=== PATIENT | female | born 1940 | race Caucasian/White ===

== ENCOUNTER → 2016-12-14 | Outpatient (CLI) | payer BC ==
[~2016-12-14] MED LIST: ASPCH81X PO; DTRSR4 PO; GABA-113 PO; GLC500 PO; IMD/2 PO; MISCCAP80 PO; NXM/40 PO; ONDA8TAB7 PO; RIVA1.5T PO; SIMV-150 PO; TRAM-10 PO
--- NOTE | 2016-12-14 12:41 | MAMMOGRAPHY REPORT ---
UNILATERAL LEFT DIGITAL DIAGNOSTIC MAMMOGRAM TOMOSYNTHESIS WITH CAD AND TARGETED LEFT ULTRASOUND: CLINICAL HISTORY: The patient reports a palpable lump in her left breast for approximately one week. She denies any trauma to the region. TECHNIQUE: Breast tomosynthesis in addition to standard 2D mammography was performed. Current study was also evaluated with a Computer Aided Detection (CAD) system. Left CC and MLO 2-D and tomosynth esis images were obtained. COMPARISON: Comparison is made to exams dated: 02/14/2016 mammogram - [facility] a nd 04/03/2008. BREAST COMPOSITION: There are scattered areas of fibroglandular density in the left breast. FINDINGS: A triangle marker was placed at the site of the palpable lump. At the site of the palpab le lump in the left upper outer quadrant there is an ill-defined focal asymmetry which measures appr oximately 15 mm. The remainder of the left breast is stable compared to prior exams, without suspic ious masses, calcifications, or areas of architectural distortion noted. Targeted ultrasound was performed of the area of the palpable lump pointed out by the patient, in th e left breast at 1:00, approximately 22 cm from the nipple. At the site of the palpable lump there is a superficially located mixed echogenicity ill-defined mass, which is predominantly hyperechoic b ut contains some central hypoechoic portions. The area is ill-defined but measures at least 2.4 x 1 .1 cm. This corresponds with the mammographic focal asymmetry. This has the mammographic and sonog raphic appearance of possible fat necrosis, however, the patient denies any known trauma to this reg ion. Incidentally noted is a morphologically normal left axillary lymph node measuring 9 mm in the left breast at 1:00. IMPRESSION: ACR BI-RADS CATEGORY 4A: LOW SUSPICION FOR MALIGNANCY, TARGETED ULTRASOUND ACR BI-RADS CATEGORY 4A: LOW SUSPICION FOR MALIGNANCY The palpable lump in the left 1:00 breast corresponds with a focal asymmetry mammographically and a mixed echogenicity mass on ultrasound. The imaging findings of the region are suggestive of fat nec rosis, however, the patient denies any known trauma to this region. Recommend follow-up diagnostic mammograms and ultrasound in 6-8 weeks to reevaluate; if the finding has not decreased/resolved at t hat time, ultrasound-guided biopsy could be performed the same day. A phone call was made to the physician's office to confirm faxed results were received. The patient has been verbally notified of the results. She tentatively scheduled the follow-up/biopsy before l eaving the department. Approximately 10% of breast cancers are not detected with mammography. A negative mammographic repor t should not delay biopsy if a clinically suggestive mass is present. Franca Robbins M.D. ah/:12/14/2016 10:22:05 Card Checker: Connor HINTON(Hipolito)(Mandy), [facility] letter sent: Abnormal 4/5 BI-RADS Code: ACR BI-RADS Category 4A: Low Suspicion For Malignancy Ultrasound BI-RADS: ACR BI-RADS Category 4A: Low Suspicion For Malignancy
== END | disposition home or self-care (01) ==
LOC: C.MAMM 08:43
PROVIDERS: ATTEND Internal Medicine Geriatric Medicine
DX: N63 Unspecified lump in breast (principal)

== ENCOUNTER → 2017-01-18 | Outpatient (CLI) | payer BC ==
--- NOTE | 2017-01-18 12:40 | DIAGNOSTIC IMAGING REPORT ---
RIGHT FOREARM 2 VIEWS ROUTINE CLINICAL HISTORY: M79.601 Pain of right upper extremity Right pain. Trauma. COMPARISON: None. DISCUSSION: Deformity mid shaft ulna felt to be secondary to old trauma.] Nondisplaced fracture proximal radial neck. No evidence dislocation. Mild degenerative change of the wrist as well as elbow. Mild soft tissue edema IMPRESSION: 1. Nondisplaced fracture radial neck 2. Deformity mid shaft ulna possibly secondary to old trauma Electronically signed by: Bryan Boyce M.D. 01/18/2017 12:39 PM Dictated Date/Time: 01/18/2017 12:37 PM
--- NOTE | 2017-01-18 12:43 | DIAGNOSTIC IMAGING REPORT ---
RIGHT WRIST MIN 3 VIEWS ROUTINE CLINICAL HISTORY: M79.601 Pain of right upper extremity Right trauma. Pain. COMPARISON: None. DISCUSSION: Generalized degenerative change throughout all major osseous structures. Moderate calcification of the triangular fibrocartilage. Considerable degenerative change first carpometacarpal joint. [No evidence for fracture]. Moderate soft tissue edema. IMPRESSION: 1. Significant degenerative change throughout the wrist. 2. No acute bony abnormality. Electronically signed by: Bryan Boyce M.D. 01/18/2017 12:41 PM Dictated Date/Time: 01/18/2017 12:39 PM
== END | disposition home or self-care (01) ==
LOC: C.RADBC 11:42
PROVIDERS: ATTEND Family Medicine
DX: M79.601 Pain in right arm (principal)

== ENCOUNTER → 2017-04-01 | Outpatient (CLI) | payer BC ==
[2017-04-01 17:24] LABS: ALT/SGPT 25 U/L (12-78); AST/SGOT 16 U/L (15-37); BLOOD UREA NITROGEN 14 mg/dl (7-18); BUN/CREATININE RATIO 24.5 (10-20); CALCIUM 9.4 mg/dl (8.5-10.1); CARBON DIOXIDE 32 mmol/L (21-32); CHLORIDE 105 mmol/L (98-107); CREATININE 0.59 mg/dl (0.60-1.20); GLUCOSE 75 mg/dl (70-99); POTASSIUM 3.9 mmol/L (3.5-5.1); SODIUM 143 mmol/L (136-145)
[2017-04-01 17:27] LABS: ALB/GLOB RATIO 1.1 (0.9-2); ALKALINE PHOSPHATASE 67 U/L (45-117)
[2017-04-01 17:32] LABS: RATIO 21.6 mcg/mg (0-30.0)
[2017-04-02 07:19] LABS: ESTIMATED AVERAGE GLUCOSE 131 mg/dl; HA1C FLAG Normal (Normal)
== END | disposition home or self-care (01) ==
LOC: C.LABBC 15:30
PROVIDERS: ATTEND Family Medicine
DX: I10 Essential (primary) hypertension (principal); E11.8 Type 2 diabetes mellitus with unspecified complications; M81.0 Age-related osteoporosis without current pathological fracture

== ENCOUNTER → 2017-06-10 | Outpatient (CLI) | payer BC ==
--- NOTE | 2017-06-10 14:04 | MAMMOGRAPHY REPORT ---
BILATERAL DIGITAL DIAGNOSTIC MAMMOGRAM TOMOSYNTHESIS WITH CAD: 06/10/2017 CLINICAL HISTORY: Here for short interval follow-up of a palpable left breast lump with an associated mammographic focal asymmetry, with findings felt to represent fat necrosis. The patient no longer f eels the lump. She denies any new complaints. Due for routine mammography of the right breast. TECHNIQUE: Breast tomosynthesis in addition to standard 2D mammography was performed. Current study was also evaluated with a Computer Aided Detection (CAD) system. Bilateral CC and MLO 2-D and tomosy nthesis images were obtained. COMPARISON: Comparison is made to exams dated: 12/14/2016 ultrasound, 12/14/2016 mammogram, 02/14/2016 mammogram - [facility], 04/03/2008, 02/23/2007, and 02/23/2007. BREAST COMPOSITION: There are scattered areas of fibroglandular density in both breasts. FINDINGS: The previously described focal asymmetry in the left upper outer quadrant at the site of t he previously palpable lump is no longer evident and has resolved, and is therefore benign and consis tent with resolved fat necrosis. The remainder of both breasts are stable compared to prior exams, w ithout suspicious masses, calcifications, or areas of architectural distortion noted. Bilateral sarina gn-appearing calcifications are not significantly changed. IMPRESSION: ACR BI-RADS CATEGORY 2: BENIGN The previously seen focal asymmetry at the site of a palpable lump in the left upper outer quadrant h as resolved, and is benign and consistent with resolved fat necrosis. Additionally, the patient no l onger feels the lump. There is no mammographic evidence of malignancy in either breast. A 1 year scr eening mammogram is recommended. The patient has been verbally notified of the results. Approximately 10% of breast cancers are not detected with mammography. A negative mammographic report should not delay biopsy if a clinically suggestive mass is present. Franca Robbins M.D. /:06/10/2017 09:41:56 Global Position System Technician: Tashia HINTON(Hipolito)(Mandy), [facility] letter sent: Normal 1/2 BI-RADS Code: ACR BI-RADS Category 2: Benign
== END | disposition home or self-care (01) ==
LOC: C.MAMM 09:02
PROVIDERS: ATTEND Physician Assistant Medical
DX: N64.9 Disorder of breast, unspecified (principal)

== ENCOUNTER → 2017-06-21 | Outpatient (CLI) | payer BC | END | disposition home or self-care (01) | LOC: C.LABSPEC 17:09 | PROVIDERS: ATTEND Nurse Practitioner Family | DX: R32 Unspecified urinary incontinence (principal) ==

== ENCOUNTER → 2017-12-29 | Outpatient (CLI) | payer BC ==
[2017-12-29 13:11] LABS: BASO % 0.5 %; BASO ABS # 0.04 K/uL (0-0.2); EOS ABS # 0.22 K/uL (0-0.5); HEMATOCRIT 39.1 % (37-47); HEMOGLOBIN 12.8 g/dL (12.0-16.0); IG# 0.01 K/uL (0.00-0.02); LYMPH % 41.8 %; LYMPH ABS # 3.08 K/uL (1.2-3.4); MEAN CELL VOLUME 84.1 fL (80-100); MEAN CORPUSCULAR HEMOGLOBIN 27.5 pg (25-34); MEAN CORPUSCULAR HGB CONC 32.7 g/dl (32-36); MEAN PLATELET VOLUME 11.1 fL (7.4-10.4); MONO % 6.1 %; MONO ABS # 0.45 K/uL (0.11-0.59); NEUT % 48.5 %; NEUT ABS # 3.57 K/uL (1.4-6.5); PLATELET COUNT 251 K/uL (130-400); RED CELL DISTRIBUTION WIDTH CV 14.5 % (11.5-14.5); RED CELL DISTRIBUTION WIDTH SD 44.3 fL (36.4-46.3); WHITE BLOOD COUNT 7.37 K/uL (4.8-10.8)
[2017-12-29 14:11] LABS: ALBUMIN 3.8 gm/dl (3.4-5.0); ALT/SGPT 25 U/L (12-78); AST/SGOT 17 U/L (15-37); BLOOD UREA NITROGEN 18 mg/dl (7-18); CALCIUM 9.2 mg/dl (8.5-10.1); CARBON DIOXIDE 28 mmol/L (21-32); CHOLESTEROL 161 mg/dl (0-200); CREATININE 0.69 mg/dl (0.60-1.20); GLUCOSE 91 mg/dl (70-99); POTASSIUM 3.8 mmol/L (3.5-5.1); SODIUM 140 mmol/L (136-145)
[2017-12-29 14:13] LABS: ALKALINE PHOSPHATASE 60 U/L (45-117); LDL CHOLESTEROL CALCULATED 65 mg/dl; TOTAL PROTEIN 7.7 gm/dl (6.4-8.2)
== END | disposition home or self-care (01) ==
LOC: C.LABBC 11:11
PROVIDERS: ATTEND Nurse Practitioner Adult Health
DX: I10 Essential (primary) hypertension (principal); E11.8 Type 2 diabetes mellitus with unspecified complications; M81.0 Age-related osteoporosis without current pathological fracture; D50.9 Iron deficiency anemia, unspecified

== ENCOUNTER 2022-04-22 07:00 | Inpatient (IN) ==
--- NOTE | 2022-04-14 13:09 | PAT Medication Instructions ---
Medication Instructions Date of Service April 14, 2022 Home Medications Medication Instructions Recorded metoprolol tartrate 25 mg tablet See Rx Instructions PO .COMPLEX 12/30/21 #135 tab metformin 500 mg tablet 500 mg PO BID #180 tab 02/05/22 Continue as directed aspirin 81 mg tablet,delayed release 81 mg PO QAM calcium carbonate 600 mg calcium (1,500 mg) tablet 600 mg PO QAM cholecalciferol (vitamin D3) 25 mcg (1,000 unit) capsule 3,000 units PO QAM cyanocobalamin (vitamin B-12) 1,000 mcg capsule 1,000 mcg PO QPM acetaminophen 500 mg tablet (Tylenol Extra Strength) 500 mg PO Q6H PRN fesoterodine 8 mg tablet,extended release 24 hr 8 mg PO QAM metoprolol tartrate 25 mg tablet See Rx Instructions metformin 500 mg tablet 500 mg PO BID esomeprazole magnesium 40 mg capsule,delayed release 40 mg PO QAM gabapentin 300 mg capsule 300 mg PO QAM PRN lovastatin 20 mg tablet 20 mg PO QAM magnesium oxide 250 mg PO QPM mirabegron 50 mg tablet,extended release 24 hr (Myrbetriq) 50 mg PO QPM ASK your prescriber and surgeon aspirin 81 mg tablet,delayed release 81 mg PO QAM DO NOT take the morning of surgery calcium carbonate 600 mg calcium (1,500 mg) tablet 600 mg PO QAM cholecalciferol (vitamin D3) 25 mcg (1,000 unit) capsule 3,000 units PO QAM metformin 500 mg tablet 500 mg PO BID fesoterodine 8 mg tablet,extended release 24 hr 8 mg PO QAM Take morning of surgery With a small sip of water, OTHERWISE NOTHING TO EAT OR DRINK AFTER MIDNIGHT: acetaminophen 500 mg tablet (Tylenol Extra Strength) 500 mg PO Q6H PRN (if needed) esomeprazole magnesium 40 mg capsule,delayed release 40 mg PO QAM gabapentin 300 mg capsule 300 mg PO QAM PRN (if needed) lovastatin 20 mg tablet 20 mg PO QAM metoprolol tartrate 25 mg tablet See Rx Instructions Take evening before surgery cyanocobalamin (vitamin B-12) 1,000 mcg capsule 1,000 mcg PO QPM acetaminophen 500 mg tablet (Tylenol Extra Strength) 500 mg PO Q6H PRN (if needed) metoprolol tartrate 25 mg tablet See Rx Instructions metformin 500 mg tablet 500 mg PO BID magnesium oxide 250 mg PO QPM mirabegron 50 mg tablet,extended release 24 hr (Myrbetriq) 50 mg PO QPM Other Notes If you have any questions please call us at [phone] or [phone] or [phone] or [phone]
--- NOTE | 2022-04-17 08:25 | Anesthesiology Consultation ---
Date of Service April 17, 2022 Assessment & Plan (1) Encounter for pre-operative examination: - COVID screening: Per assessment on 04/17: No known COVID-19 positive contacts or current COVID-19 related symptoms. Travel screen negative. Patient vaccinated . Surgeon arranging preop COVID testing (scheduled 04/20; [facility]). Awaiting results. Pt requiring admission post-operatively. Plan for recheck with COVID [facility] AM DOS due to possibility that patient may have a roommate. OR aware. [facility]ne order placed. - Check BSG AM DOS - PCP office visit (04/09/22): "Leg cramps are intermittent concern for deep vein thrombosis. Potentially or electrolytes will obtain lab work today.. No signs of localized infection.. Headache/ migraine with history continue treatment as needed and call the office of her.. If worsening symptoms recur would go to the emergency room for CT scan of evaluation" > unremarkable labs done 04/09/22. - ASA instructions: Per patient, continuing perioperatively per surgeon - Cardiology office visit (04/01/22): "She is asymptomatic but does have a limited functional status. It is therefore recommended patient undergo a pharmacologic nuclear stress test for further risk stratification prior to surgery. The stress will be arranged in the near future. Given the murmur auscultated on exam, will also arrange for an echocardiogram. Pending the results of the studies, patient is at an acceptable risk to proceed with surgery." > Echo 04/20/22 was unrem arkable. Stress test done 04/17/22 showed "Moderate, partially-reversible, inferolateral perfusion defect with normal wall motion likely represents artifact. Cannot rule out a small amount of low risk single vessel ischemia/infarct." Provider that saw patient is out of the office and unable to give formal clearance but stress test was reviewed by another provider at the cardiology office MIRZA Shelby 04/21/22 who stated "this was a low risk stress test." Reviewed with Dr. Lua. He feels patient acceptable risk to proceed with surgery as scheduled. Chart Review Chart Review: Acceptable Risk for Surgery (pending evaluation AM DOS) and Patient seen in Pre Admission Testing Teaching & Discussion Pre-Anesthesia Teaching/Discussion Notes: Instructed NPO after midnight before surgery,except medications with 15 cc of water. Medication instructions provided according to the PAT guidelines. History Surgery Operation Date: 04/22/22 10:40 Proposed Procedures p Stenting Thoracic Aorta - Jose Brock MD Height/Weight Height: 4 ft 9 in Weight: 61.235 kg (per verbal) Allergies Allergy/AdvReac Type Severity Reaction Status Date / Time Penicillins Allergy Unknown Hives, Verified 04/14/22 13:55 throat swelling pollen extracts Allergy Unknown Seasonal Verified 04/14/22 13:55 allergies dobutamine Allergy Verified 04/09/22 12:57 sulfamethoxazole Allergy Hives Verified 04/09/22 12:57 [From Bactrim] trimethoprim [From Bactrim] Allergy Hives Verified 04/09/22 12:57 codeine AdvReac Mild N/V Verified 04/09/22 12:57 Medications Home Medications Medication Instructions Recorded Confirmed Last Taken aspirin 81 mg tablet,delayed 81 mg PO QAM tab 05/15/19 04/14/22 Unknown release calcium carbonate 600 mg calcium 600 mg PO QAM tab 05/15/19 04/14/22 Unknown (1,500 mg) tablet cholecalciferol (vitamin D3) 25 3,000 units PO QAM cap 05/15/19 04/14/22 Unknown mcg (1,000 unit) capsule cyanocobalamin (vitamin B-12) 1,000 mcg PO QPM #90 cap 05/15/19 04/14/22 Unknown 1,000 mcg capsule acetaminophen 500 mg tablet 500 mg PO Q6H PRN 10/06/21 04/14/22 Unknown (Tylenol Extra Strength) fesoterodine 8 mg tablet,extended 8 mg PO QAM tab 10/06/21 04/14/22 Unknown release 24 hr metoprolol tartrate 25 mg tablet See Rx Instructions PO .COMPLEX 12/30/21 04/14/22 Unknown #135 tab metformin 500 mg tablet 500 mg PO BID #180 tab 02/05/22 04/14/22 Unknown esomeprazole magnesium 40 mg 40 mg PO QAM 04/14/22 04/14/22 Unknown capsule,delayed release gabapentin 300 mg capsule 300 mg PO QAM PRN 04/14/22 04/14/22 Unknown lovastatin 20 mg tablet 20 mg PO QAM 04/14/22 04/14/22 Unknown magnesium oxide 250 mg PO QPM 04/14/22 04/14/22 Unknown mirabegron 50 mg tablet,extended 50 mg PO QPM 04/14/22 04/14/22 Unknown release 24 hr (Amanda) Past Medical History Medical History Carotid artery stenosis Finger deformity Left middle finger GERD without esophagitis Hypercholesterolemia Hypertension Irritable bowel syndrome Large hiatal hernia Per 03/10/22 Chest CTA Mild coronary artery disease 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 Osteoporosis Phantom limb syndrome 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 Type II diabetes mellitus with complication Urge and stress incontinence Exercise / Class Metabolic Activity III < 4 Walking/Shop/Light housework (Left AKA (uses crutches)) Past Family History Family History Father Emphysema of lung Acute myocardial infarction Hiatal hernia Rheumatoid arthritis Cardiac disorder Myocardial infarction Lung cancer Mother Hypertension Malignant neoplasm of uterus Cardiac disorder Ovarian cancer Unknown Osteoarthritis Diabetes Grandmother Diabetes Aunt Diabetes Uncle Diabetes Grandmother Malignant neoplasm of stomach Denies family history of Prostate cancer Breast cancer Colorectal cancer Stroke Past Surgical History Surgical History History of cataract surgery R/L History of colonoscopy History of D&C History of hand surgery History of hemorrhoidectomy History of tonsillectomy History of tubal ligation 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 Physical Exam Vital Signs VITALS BP 131/59 P 76 TEMP 98.4 SP02 95%RA RESP 16 PHYSICAL Mildly decreased cervical extension range of motion. Full TMJ range of motion. TMD 3 finger breaths Mallampati Score 3 Dentition: several "rotted" teeth felt r/t medication rxn Lungs: clear throughout to auscultation Cardiac: regular rate and rhythm, II/ systolic murmur noted Spine: normal Carotid arteries: negative bruit Extremities: left knee AKA Lab Results Anesthesia Preop Results Results Anesthesia Widget: WBC 7.02 K/uL (4.8-10.8) 04/09/22 Hgb 12.0 g/dL (12.0-16.0) 04/09/22 Hct 36.8 % (37-47) L 04/09/22 Plt 252 K/uL (130-400) 04/09/22 Na 137 mmol/L (136-145) 04/09/22 K 3.7 mmol/L (3.5-5.1) 04/09/22 Cl 103 mmol/L (98-107) 04/09/22 CO2 26 mmol/L (21-32) 04/09/22 BUN 15 mg/dl (6-23) 04/09/22 Creat 0.74 mg/dl (0.6-1.2) 04/09/22 Glucose Level 76 mg/dl (70-99(Fasting)) 04/09/22 PT 10.5 Seconds (9.0-12.0) 04/17/22 PTT 26.5 Seconds (21.0-31.0) 04/17/22 INR 1.0 (0.9-1.1) 04/17/22 HA1c 6.1 % (4.5-5.6) H 03/26/22 Blood Type O Positive 04/17/22 Antibody Screen NEGATIVE 04/17/22 Testing Electrocardiogram Date: 03/10/22 SR at 73bpm. Normal ECG. Chest X-Ray Date: 04/17/22 Findings: + NAD Echocardiogram Date: 04/20/22 EF 60-65%. No regional wall motion abnormalities. Sigmoid septum. AV sclerosis. Borderline pulmonary hypertension. Estimated PASP 35-40 mmHg. Stress Test Date: 04/17/22 Moderate, partially-reversible, inferolateral perfusion defect with normal wall motion likely represents artifact. Cannot rule out a small amount of low risk single vessel ischemia/infarct. Small LV with normal function. LVEF 74% with no regional wall motion abnormalities. Non-diagnostic stress ECG due to inability to reach target HR with Lexiscan. Other Testing CTA Chest (03/10/22) Cardiomegaly without pulmonary emboli identified. Bilateral groundglass opacities are suggestive of probable atelectasis. A mild nonspecific pneumonitis is considered less likely. No pneumothorax or rib fracture identified. Extensive atherosclerosis of the thoracic aorta is most pronounced within the descending thoracic aorta resulting in high-grade stenosis at the level of T9. Large hiatal hernia. Carotid imaging (05/29/11) 50% CHI stenosis, 1-49% LICA stenosis. Antegrade flow in vertebral arteries.
[~2022-04-22 07:00] MED LIST changes: -ASPCH81X PO; +CLINDAMYCIN/D5W 600 MG/54 ML BAG IV SCH; -DTRSR4 PO; -GABA-113 PO; -GLC500 PO; -IMD/2 PO; -MISCCAP80 PO; -NXM/40 PO; -ONDA8TAB7 PO; -RIVA1.5T PO; -SIMV-150 PO; -TRAM-10 PO
--- NOTE | 2022-04-22 07:13 | History & Physical Report ---
Date of Service April 22, 2022 History of Present Illness Primary Care Provider: Farhat Lynch DO Chief Complaint rm#[id number] here for consult for descending aorta stenosis, has had chest pain which initiated workup when stenosis was found History of Present Illness I the pleasure of seeing Katheryn today for evaluation of her aortic stenosis. As you know she is a 81-year-old female who was found to have stenosis of her ascending aorta at the T9 level on a CTA of her chest. 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 She ambulates with crutches. She denies any symptoms of claudication when she ambulates. She denies any rest pain in her foot. She denies any color changes or ulcerations of her foot. She denies any abdominal complaints of postprandial pain. She denies any history or knowledge of renal insufficiency. Review of Systems 10 systems are reviewed. The positive findings were occasional joint swelling chest pain times once which resolved. She has irritable bowel syndrome with occ asional diarrhea and heartburn. She gets frequent bladder infections with slight incontinence. Rest of her review of systems is as the HPI. She denies any abdominal surgery other than the gallbladder. Physical Exam Vitals & Measurements HR: 78 (Monitored) BP: 152/68 SpO2: 96% Input and Output - Last 24 hours (Last 8 hours) No I/O Data Found: On physical exam the patient is awake alert and oriented x3. She is in no apparent distress. Her blood pressure is 140/68 on the left and 152/68 on the right. Radials and carotids are +2 bilaterally. Lungs are clear heart had a regular rhythm. Abdominal exam is benign. No pulsatile masses appreciated. Femorals and pedal's on the right side are +1. The left femorals +1. She has good capillary refill in the right foot. Neurologic exam is grossly intact to motor and sensory function. CT angio was reviewed and this showed at the T9 level severe stenosis of the descending aorta with a large amount of plaque formation. Assessment/Plan 1. Stenosis of thoracic aorta At this point our discussion was whether to leave this alone until it gets worse or she develops symptoms ordered prophylactically due to the location covered with a covered stent and dilated the aorta at that level. We went over the options, risks, and benefits. At this point she would like to go ahead with intervention and try to dilate this area. She understood the risks and options and benefits involved. This will be scheduled in the near future. Thank you very much for letting us participate in the care of this patient. Sincerely, Mary Ann Brock MD Problem List/Past Medical History Ongoing Right shoulder pain Stenosis of thoracic aorta Historical No qualifying data Medications Inpatient No active inpatient medications Home Aspir 81 calcium carbonate esomeprazole, 40 mg, PO, Daily Nelson-Iron, See Instructions lovastatin, 20 mg, PO, Daily metFORMIN, 500 mg, PO, bid metoprolol tartrate, 12.5 mg, PO, bid Myrbetriq 50 mg oral tablet, extended release, 50 mg= 1 tab, PO, Daily Toviaz, 6 mg, PO, Daily Vitamin B-12 Vitamin D3, 3000, PO, Daily Allergies penicillin (hives internal and external) Social History Smoking Status Never smoked cigarettes Signature Line Electronic Signature on File Jose Brock MD Author Signature Dt/Tm: 03/19/2022 11:00 AM It Compliance Analyst [facility] [place], [address] [place] [address] EJS Result Type: .Outpt Ltr Date of Service: March 19, 2022 11:00 EDT Authorization Status: Final Subject: Consult Note Author or Import Date: MD Brock Eugene J on March 19, 2022 11:00 EDT Verified By: MD Brock Eugene J on March 19, 2022 11:00 EDT Encounter info: [id number], [facility], 03/19/2022 - 03/19/2022 Allergies Allergy/AdvReac Type Severity Reaction Status Date / Time Penicillins Allergy Unknown Hives, Verified 04/14/22 13:55 throat swelling pollen extracts Allergy Unknown Seasonal Verified 04/14/22 13:55 allergies dobutamine Allergy Verified 04/09/22 12:57 sulfamethoxazole Allergy Hives Verified 04/09/22 12:57 [From Bactrim] trimethoprim [From Bactrim] Allergy Hives Verified 04/09/22 12:57 codeine AdvReac Mild N/V Verified 04/09/22 12:57 Home Medications Medication Instructions Recorded Confirmed Type aspirin 81 mg tablet,delayed 81 mg PO QAM tab 05/15/19 04/14/22 History release calcium carbonate 600 mg calcium 600 mg PO QAM tab 05/15/19 04/14/22 History (1,500 mg) tablet cholecalciferol (vitamin D3) 25 3,000 units PO QAM cap 05/15/19 04/14/22 History mcg (1,000 unit) capsule cyanocobalamin (vitamin B-12) 1,000 mcg PO QPM #90 cap 05/15/19 04/14/22 History 1,000 mcg capsule acetaminophen 500 mg tablet 500 mg PO Q6H PRN 10/06/21 04/14/22 History (Tylenol Extra Strength) fesoterodine 8 mg tablet,extended 8 mg PO QAM tab 10/06/21 04/14/22 History release 24 hr metoprolol tartrate 25 mg tablet See Rx Instructions PO .COMPLEX 12/30/21 04/14/22 Rx #135 tab metformin 500 mg tablet 500 mg PO BID #180 tab 02/05/22 04/14/22 Rx esomeprazole magnesium 40 mg 40 mg PO QAM 04/14/22 04/14/22 History capsule,delayed release gabapentin 300 mg capsule 300 mg PO QAM PRN 04/14/22 04/14/22 History lovastatin 20 mg tablet 20 mg PO QAM 04/14/22 04/14/22 History magnesium oxide 250 mg PO QPM 04/14/22 04/14/22 History mirabegron 50 mg tablet,extended 50 mg PO QPM 04/14/22 04/14/22 History release 24 hr (Myrbetriq) Past Med/Surg History Medical History Carotid artery stenosis Finger deformity Left middle finger GERD without esophagitis Hypercholesterolemia Hypertension Irritable bowel syndrome Large hiatal hernia Per 03/10/22 Chest CTA Mild coronary artery disease 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 Osteoporosis Phantom limb syndrome 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 Type II diabetes mellitus with complication Urge and stress incontinence Surgical History History of cataract surgery R/L History of colonoscopy History of D&C History of hand surgery History of hemorrhoidectomy History of tonsillectomy History of tubal ligation S/P AKA (above knee amputation) Left leg - R/t traumatic injury age 23 S/P cholecystectomy S/P knee replacement Right Family History Father Emphysema of lung Acute myocardial infarction Hiatal hernia Rheumatoid arthritis Cardiac disorder Myocardial infarction Lung cancer Mother Hypertension Malignant neoplasm of uterus Cardiac disorder Ovarian cancer Unknown Osteoarthritis Diabetes Grandmother Diabetes Aunt Diabetes Uncle Diabetes Grandmother Malignant neoplasm of stomach Denies family history of Prostate cancer Breast cancer Colorectal cancer Stroke Social History (Updated 03/26/22 @ 10:39 by Mona Berger) Smoking Status: Never smoker Second Hand Exposure: No; Hx Alcohol Use: No Hx Substance Use: No Preferred Language: Citizen Of [place] Communication Ability: Effective Visual Impairment: Limited Hearing Ability: Use of Hearing Aid Gaming Host Required: No Beliefs That Will Affect Care: None marital status: / Current Living Situation: Alone Current Living Situation Comment: Family to help post op current occupational status: disabled How many Children do You have: 2 Feels Safe at Home: Yes Childhood Exposure to Second-Hand Smoke: No caffeine: No Dental Care, Regularly: Yes Physical Activity Frequency: Does not Exercise Seatbelt Use: always Sunscreen Use: No Assistive Devices: Crutches, Hearing Aid - Right and Walker
[2022-04-22] MEDS: LACTATED RINGER'S 1,000 ML IV SCH ×3 (09:00→16:53)
[2022-04-22] MEDS ORDERED: ATROPINE SULFATE 0.1 MG/ML 10ML SYR IV PRN (10:53)
[2022-04-22] MEDS ORDERED: fentaNYL citrate 100 MCG/2 ML VIAL IV PRN (10:53)
[2022-04-22] MEDS ORDERED: ONDANSETRON INJ 2 MG/ML 2 ML VIAL IV PRN (10:53)
[2022-04-22] MEDS ORDERED: fentaNYL citrate 100 MCG/2 ML VIAL ONE ×2 (11:42→13:51)
--- NOTE | 2022-04-22 11:43 | History & Physical Bridge Note ---
Date of Service April 22, 2022 History & Physical Bridge Note I have examined the patient, reviewed the History & Physical and in the interval since the performance of the History & Physical I have noted the following changes of clinical significance: no changes noted
[2022-04-22] MEDS ORDERED: GELATIN SPONGE SZ 100 ONE (11:46)
[2022-04-22] MEDS ORDERED: THROMBIN FOR SOLN 20000 UNIT KIT ONE (11:46)
[2022-04-22] MEDS ORDERED: ONDANSETRON INJ 2 MG/ML 2 ML VIAL ONE (13:40)
[2022-04-22] MEDS ORDERED: PROPOFOL IV EMULSION 10 MG/ML 20 ML VIAL IV ONE (13:40)
[2022-04-22] MEDS ORDERED: HEPARIN SOD (PORCINE) 1000 UNIT/ML ONE (13:40)
[2022-04-22] MEDS ORDERED: LIDOCAINE 2% 2 ML VIAL/AMP(20MG/ML) INFIL ONE (13:40)
[2022-04-22] MEDS ORDERED: PHENYLEPHRINE HCL 10 MG/ML VIAL ONE (13:40)
[2022-04-22] MEDS ORDERED: ROCURONIUM BROMIDE 10 MG/ML 5 ML VIAL IV ONE (13:40)
[2022-04-22] MEDS ORDERED: ePHEDrine sulfate 50 MG/ML SYR ONE (13:58)
--- NOTE | 2022-04-22 14:22 | Procedure Note ---
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 She ambulates with crutches. She denies any symptoms of claudication when she ambulates. She denies any rest pain in her foot. She denies any color changes or ulcerations of her foot. She denies any abdominal complaints of postprandial pain. She denies any history or knowledge of renal insufficiency. She presents today for aortoiliac angiography with possible intervention. Description of Procedure The patient was taken to the angiography suite. She was transferred to the operating room table and placed in the supine position. The bilateral groins were prepped and draped in the usual sterile fashion. A team timeout was performed. Under ultrasound guidance the right common femoral artery was accessed with a 19G cook needle. This was pulsatile and there was some posterior wall calcification. A J wire was advanced. The needle was removed. A small andrew was made in the skin around the wire. A 5F short sheath was placed over the wire. An angled glidewire was advanced through the sheath on the right side and into the infrarenal aorta. A pigtail catheter was advanced over the wire and the wire was removed. Angiography of the distal aorta and bilateral iliac systems was performed. There were scattered calcifications along the distal aorta however there were no flow-limiting stenoses. The proximal right common iliac artery had an approximately 70% flow-limiting stenosis which was focal. The right external and hypogastric arteries were patent and with scattered calcifications however no flow-limiting stenoses. On the left, the common iliac artery was occluded. The external iliac artery appeared to fill retrograde from collaterals, which then perfused some of the common iliac artery. The left hypogastric artery was not definitively visualized however there were multiple collaterals in this vicinity, one of which could actually have represented a diminutive hypogastric artery. Under ultrasound guidance the left common femoral artery was accessed with a 19G cook needle. This was weakly pulsatile and there was some posterior wall calcification. A J wire was advanced. The needle was removed. A small andrew was made in the skin around the wire. A 5F short sheath was placed over the wire. The patient was heparinized. A floppy angled glidewire was advanced over the wire through the left side. This buckled back initially suggesting an obstructive lesion however with minimal maneuvering we were able to cross into the aorta and our wire actually went into the contralateral (right) common iliac artery. We then placed and angled glide catheter and used this to direct the wire up into the aorta. Then, a 5x40mm armada balloon was inflated along the length of the left common iliac and the proximal external iliac artery. Repeat angiography showed that there was flow through this system however it was still stenotic and the flow was not as brisk as on the contralateral side. On the left side, the floppy wire was exchanged for a stiff angled glide wire. The 5F sheath was removed and exchanged for a short 8F sheath. On the right side, the 5F sheath was removed and two perclose devices were deployed, in the 10 o'clock and 2 o'clock positions. Then, an 8F sheath was placed. On the left side, an 8x59 VBX stent was advanced so that there was about 1cm of its proximal end into the aorta. On the right side, an 8x39 VBX stent was advanced so that there was about 1 cm of its proximal end into the aorta. The balloons were inflated simultaneously in a kissing fashion. Then, on the right side a 9x40mm armada balloon was inflated inside the stent for improved wall apposition in this larger artery. Repeat angiography demonstrated excellent flow through the right iliac artery stent and no further areas of flow-limiting stenosis in the right iliac system. On the left, the stent was patent however distal to the stent and extending to the femoral artery the vessels were still heavily diseased and the flow became a bit sluggish. Given that she has a left above knee amputation, we chose not to further intervene on this side. Next, a pigtail catheter was advanced up the left side into the mid descending thoracic aorta. Angiography was performed and showed a calcific lesion about the T9 level. While the calcific plaque was certainly impressive in size the flow across the lesion was brisk. We checked arterial catheter pressures across the lesion and above the lesion the pressure was 97mmHg. Within the lesion the pressure was 95mmHg. Just distal to the lesion the pressure was 93mmHg. Thus we did not intervene on this lesion. The proglide devices were deployed in the right groin with good take. Manual pressure was held. Hemostasis was obtained. A starclose closure device was deployed in the left groin with good take. Manual pressure was held. Hemostasis was obtained. Clean dry dressings were placed over the bilateral groin access sites. The patient tolerated the procedure well and without immediate complication. At the conclusion of the case all needle, sponge, and instrument counts were correct. The patient was taken to the recovery room in satisfactory condition. Dr. Borck remained present and scrubbed for the entirety of the procedure. I attest to the content of the Intraoperative Record and any orders documented therein. Any exceptions are noted below.
[2022-04-22] MEDS ORDERED: VISIPAQUE IV PRN (14:25)
--- NOTE | 2022-04-22 14:38 | Post Operative Brief Note ---
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
[2022-04-22] MEDS ORDERED: GABAPENTIN 300 MG CAP PO PRN (15:54)
[2022-04-22] MEDS ORDERED: oxyCODONE/ACETAMINOPHEN 5mg/325mg TAB PO PRN (15:54)
--- NOTE | 2022-04-22 15:58 | Anesthesiology Progress Note ---
Date of Service April 22, 2022 Anesthesia Post Procedure Vital Signs Vital Signs: Temp Pulse Pulse Resp BP BP BP 04/22/22 15:40 80 17 136/58 L 04/22/22 15:35 78 18 85/63 L 04/22/22 15:30 77 16 118/56 L 04/22/22 15:28 78 16 04/22/22 08:52 36.5 C 86 20 121/64 135/58 L Pulse Ox 04/22/22 15:40 99 04/22/22 15:35 99 04/22/22 15:30 100 04/22/22 15:28 100 04/22/22 08:52 94 Transfer of Care Handoff Completed per policy Notes Mental Status: alert / awake / arousable Patient Amnestic to Procedure: Yes Nausea / Vomiting: adequately controlled Pain: adequately controlled Airway Patency, RR, SpO2: stable & adequate BP & HR: stable & adequate Hydration State: stable & adequate Anesthetic Complications: no major complications apparent
[2022-04-22] MEDS ORDERED: ONDANSETRON INJ 2 MG/ML 2 ML VIAL IV ONE (16:04)
[2022-04-22] MEDS ORDERED: HYDROmorphone INJ 0.5 MG/0.5 ML SYR IV STA (16:06)
--- NOTE | 2022-04-22 16:06 | Critical Care Consultation ---
Date of Consultation April 22, 2022 Assessment & Plan (1) Stenosis of thoracic aorta: (2) Iliac artery stenosis, bilateral: (3) Presence of cerebrospinal fluid drainage device: Will defer pain control and hemodynamic parameters to the vascular surgery team. Patient having lumbar pain. Dr. Brock feels this pain may be related to stretching of the arteries. Pain may also be related to the CSF drain. We will check a PTT and if this is within normal limits, anesthesia will pull the drain. I personally discussed the case with the on-call anesthesiologist and the vascular surgeon. Low threshold for imaging of the abdomen/pelvis and spine to evaluate for hematoma or ischemic changes. We will check a post op CBC. Case discussed with bedside nursing as well. History of Present Illness Reason for Consultation: "Spinal drain in place" Attending Physician: Jose Brock MD History of Present Illness 81-year-old female with a past medical history of coronary artery disease, hypertension, carotid artery stenosis, left lower extremity [id number] amputation due to traumatic injury at the age of 23, GERD, IBS, type 2 diabetes mellitus and peripheral vascular disease who presented to the hospital today for stenting of her aorta and iliac arteries. Preoperative echo performed 04/20/2022 revealed an LVEF of 60 to 65%. Aortic valve sclerosis noted. Preop myocardial stress test demonstrated partially reversible, inferolateral perfusion defect with normal wall motion likely representing artifact. LVEF 74%. Nondiagnostic stress EKG. chest CTA 03/10/2022 revealed thoracic aorta stenosis at the level of T9. Bilateral groundglass opacities suggestive of atelectasis. Large hiatal hernia. Patient underwent stenting of the right iliac artery which was successful based on the op note. Left iliac artery was also stented, but flow was sluggish and no further intervention was pursued given the patient's history of amputation. Angiography was performed of the aorta, but ultimately no stenting was completed due to adequate flow based on the op note. Patient is currently in the ICU and remains hemodynamically stable. Patient notes severe lower back pain. Patient has a CSF drain in place that was placed prior to the vascular procedure to monitor CSF pressures given the possibility of spinal ischemia in the setting of aortic artery stenosis and stenting. I discussed the pain with the vascular surgeon and anesthesia staff. I placed an order for a PTT, if the PTT is normal, anesthesia will pull the drain. The patient also had a bout of emesis upon arrival to the ICU and received IV Zofran. She is complaining of more nausea and I placed an order for 12.5 mg of IV Phenergan. Allergies Allergy/AdvReac Type Severity Reaction Status Date / Time Penicillins Allergy Unknown Hives, Verified 04/22/22 08:46 throat swelling pollen extracts Allergy Unknown Seasonal Verified 04/22/22 08:46 allergies dobutamine Allergy Verified 04/22/22 08:46 sulfamethoxazole Allergy Hives Verified 04/22/22 08:46 [From Bactrim] trimethoprim [From Bactrim] Allergy Hives Verified 04/22/22 08:46 codeine AdvReac Mild N/V Verified 04/22/22 08:46 Home Medications Medication Instructions Recorded Confirmed Type aspirin 81 mg tablet,delayed 81 mg PO QAM tab 05/15/19 04/22/22 History release calcium carbonate 600 mg calcium 600 mg PO QAM tab 05/15/19 04/22/22 History (1,500 mg) tablet cholecalciferol (vitamin D3) 25 3,000 units PO QAM cap 05/15/19 04/22/22 History mcg (1,000 unit) capsule cyanocobalamin (vitamin B-12) 1,000 mcg PO QPM #90 cap 05/15/19 04/22/22 History 1,000 mcg capsule acetaminophen 500 mg tablet 500 mg PO Q6H PRN 10/06/21 04/22/22 History (Tylenol Extra Strength) fesoterodine 8 mg tablet,extended 8 mg PO QAM tab 10/06/21 04/22/22 History release 24 hr metoprolol tartrate 25 mg tablet See Rx Instructions PO .COMPLEX 12/30/21 04/22/22 Rx #135 tab metformin 500 mg tablet 500 mg PO BID #180 tab 02/05/22 04/22/22 Rx esomeprazole magnesium 40 mg 40 mg PO QAM 04/14/22 04/22/22 History capsule,delayed release gabapentin 300 mg capsule 300 mg PO QAM PRN 04/14/22 04/22/22 History lovastatin 20 mg tablet 20 mg PO QAM 04/14/22 04/22/22 History magnesium oxide 250 mg PO QPM 04/14/22 04/22/22 History mirabegron 50 mg tablet,extended 50 mg PO QPM 04/14/22 04/22/22 History release 24 hr (Amanda) Patient History Medical History (Updated 04/22/22 @ 16:53 by Terrell Lisa MD) Carotid artery stenosis Finger deformity Left middle finger GERD without esophagitis Hypercholesterolemia Hypertension Iliac artery stenosis, bilateral Irritable bowel syndrome Large hiatal hernia Per 03/10/22 Chest CTA Mild coronary artery disease 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 Osteoporosis Phantom limb syndrome Presence of cerebrospinal fluid drainage device 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 Type II diabetes mellitus with complication Urge and stress incontinence Surgical History History of cataract surgery R/L History of colonoscopy History of D&C History of hand surgery History of hemorrhoidectomy History of tonsillectomy History of tubal ligation S/P AKA (above knee amputation) Left leg - R/t traumatic injury age 23 S/P cholecystectomy S/P knee replacement Right Family History Father Emphysema of lung Acute myocardial infarction Hiatal hernia Rheumatoid arthritis Cardiac disorder Myocardial infarction Lung cancer Mother Hypertension Malignant neoplasm of uterus Cardiac disorder Ovarian cancer Unknown Osteoarthritis Diabetes Grandmother Diabetes Aunt Diabetes Uncle Diabetes Grandmother Malignant neoplasm of stomach Denies family history of Prostate cancer Breast cancer Colorectal cancer Stroke Social History Smoking Status: Never smoker Second Hand Exposure: No; Do You Dip or Chew Tobacco: No; Tobacco Cessation Education Requested by Patient: No Hx Alcohol Use: No Hx Substance Use: No Preferred Language: Slovenian Communication Ability: Effective Visual Impairment: Limited Hearing Ability: Use of Hearing Aid Division Field Inspector Required: No Beliefs That Will Affect Care: None marital status: / Current Living Situation: Alone Current Living Situation Comment: Family to help post op current occupational status: disabled How many Children do You have: 2 Other Information That Helps Us Care for You: No Feels Safe at Home: Yes Safety Concerns: Feels Safe At This Time Childhood Exposure to Second-Hand Smoke: No caffeine: No Dental Care, Regularly: Yes Physical Activity Frequency: Does not Exercise Seatbelt Use: always Sunscreen Use: No Assistive Devices: Crutches, Hearing Aid - Right and Walker Review of Systems Review of Systems: All systems reviewed & are unremarkable except as noted in HPI & below Physical Exam Physical Exam: Constitutional: Patient appears to be of their stated age. Patient is in moderate distress. Eyes: Pupils are equal round and reactive to light. Conjunctivae are normal. Anicteric sclera. Ears nose, mouth and throat: Mallampati class []. Normal posterior oropharynx. Uvula is midline. Neck: Trachea is midline. Visual inspection is normal. Respiratory: Clear to auscultation bilaterally. No use of accessory muscles. No significant clubbing noted. Cardiovascular: Regular rate and rhythm. Distal right lower extremity pulses intact. Left AKA noted. Gastrointestinal: Normal bowel sounds, soft, nontender and nondistended. No hepatosplenomegaly noted. Musculoskeletal: No cyanosis. Patient is able to move all extremities. Skin: No rashes, warm dry and intact. Neurologic: No obvious focal neurological deficits seen. CSF drain noted in the lumbar space. Psychiatric: Alert and oriented x3 with a euthymic affect. Results & Data Results & Data ([facility]) Vital Signs (Past 12 Hours) Vital Signs Temp Pulse Pulse Resp BP BP BP 04/22/22 15:40 80 17 136/58 L 04/22/22 15:35 78 18 85/63 L 04/22/22 15:30 77 16 118/56 L 04/22/22 15:28 78 16 04/22/22 08:52 36.5 C 86 20 121/64 135/58 L Pulse Ox 04/22/22 15:40 99 04/22/22 15:35 99 04/22/22 15:30 100 04/22/22 15:28 100 04/22/22 08:52 94 Coding Level of Care Code 72264 Inpt Consult Level 4 Diagnoses Stenosis of thoracic aorta Q25.1 Iliac artery stenosis, bilateral I77.1 Presence of cerebrospinal fluid drainage device Z98.2
[2022-04-22] MEDS ORDERED: PROMETHAZINE HCL 12.5 MG in SODIUM CHLORIDE 0.9% 50 ML IV STA (16:46)
[2022-04-22 18:00] LABS: Partial Thromboplastin Ratio 0.9; Partial Thromboplastin Time 24.4 Seconds (21.0-31.0)
[2022-04-22 18:02] LABS: Basophils # (auto) 0.03 K/uL (0-0.2); Basophils % (auto) 0.3 %; Eosinophils # (auto) 0.04 K/uL (0-0.5); Eosinophils % (auto) 0.4 %; Hematocrit (blood only) 26.9 % (37-47); Hemoglobin 8.8 g/dL (12.0-16.0); Immature Granulocytes # (auto) 0.02 K/uL (0.00-0.02); Immature Granulocytes % (auto) 0.2 %; Lymphocytes % (auto) 17.8 %; Mean Corpuscular Hemoglobin 27.4 pg (25-34); Mean Corpuscular Volume 83.8 fL (80-100); Mean Platelet Volume 10.9 fL (7.4-10.4); Monocytes # (auto) 0.41 K/uL (0.11-0.59); Monocytes % (auto) 3.8 %; Neutrophils # (auto) 8.25 K/uL (1.4-6.5); Neutrophils % (auto) 77.5 %; Platelet Count 189 K/uL (130-400); RDW Coefficient of Variation 13.8 % (11.5-14.5); RDW Standard Deviation 42.1 fL (36.4-46.3); Red Blood Count 3.21 M/uL (4.2-5.4); White Blood Count 10.65 K/uL (4.8-10.8)
[2022-04-22 18:04] LABS: Mean Corpuscular Hgb Conc 32.7 g/dL (32-36)
--- NOTE | 2022-04-22 18:32 | Anesthesia Procedure Note ---
Date of Service April 22, 2022 Anesthesia Post Epidural Note Vital Signs Vital Signs: Temp Pulse Resp BP Pulse Ox 36.5 C 76 14 161/67 H 99 04/22/22 08:52 04/22/22 18:00 04/22/22 18:00 04/22/22 18:00 04/22/22 18:00 Pain Intensity Lower Back: Pain Intensity: 1 Notes Mental Status: alert / awake / arousable and participated in evaluation Nausea / Vomiting: adequately controlled Pain: adequately controlled Airway Patency, RR, SpO2: stable & adequate BP & HR: stable & adequate Hydration State: stable & adequate Neuraxial Anesthesia: was administered and sensory block is resolving Anesthetic Complications: no major complications apparent and Pt Satisfied with anesthetic care Epidural: Removed without complications and With tip intact Notes: The patient's ANANDA is 24.4 with PTT ratio of 0.9. The drain site was clear dry and intact.
[2022-04-22] MEDS: CYANOCOBALAMIN (B-12) 500 MCG TABLET PO SCH (20:53)
[2022-04-22] MEDS: MIRABEGRON ER 25 MG TAB PO SCH (20:54)
[2022-04-22] MEDS: metFORMIN HCL 500 MG TAB PO SCH (20:54)
[2022-04-22] MEDS: MAGNESIUM OXIDE 400 MG TAB PO SCH (20:54)
[2022-04-22] MEDS: METOPROLOL TARTRATE 25 MG TAB PO SCH (20:54)
[2022-04-23] MEDS: LACTATED RINGER'S 1,000 ML IV SCH (03:04)
[2022-04-23 07:19] LABS: Basophils # (auto) 0.01 K/uL (0-0.2); Basophils % (auto) 0.1 %; Eosinophils # (auto) 0.01 K/uL (0-0.5); Eosinophils % (auto) 0.1 %; Hematocrit (blood only) 21.7 % (37-47); Hemoglobin 7.1 g/dL (12.0-16.0); Immature Granulocytes # (auto) 0.01 K/uL (0.00-0.02); Immature Granulocytes % (auto) 0.1 %; Lymphocytes # (auto) 2.28 K/uL (1.2-3.4); Lymphocytes % (auto) 24.5 %; Mean Corpuscular Hemoglobin 26.6 pg (25-34); Mean Corpuscular Hgb Conc 32.7 g/dL (32-36); Mean Corpuscular Volume 81.3 fL (80-100); Mean Platelet Volume 10.5 fL (7.4-10.4); Monocytes # (auto) 0.66 K/uL (0.11-0.59); Monocytes % (auto) 7.1 %; Neutrophils # (auto) 6.33 K/uL (1.4-6.5); Neutrophils % (auto) 68.1 %; Platelet Count 159 K/uL (130-400); RDW Coefficient of Variation 14.2 % (11.5-14.5); Red Blood Count 2.67 M/uL (4.2-5.4)
[2022-04-23 07:42] LABS: RBC Morphology Unremarkable
[2022-04-23] MEDS ORDERED: SODIUM CHLORIDE 0.9% 250 ML IV PRN (08:38)
--- NOTE | 2022-04-23 08:56 | Critical Care Progress Note ---
Date of Service April 23, 2022 Assessment & Plan (1) Stenosis of thoracic aorta: (2) Iliac artery stenosis, bilateral: (3) Presence of cerebrospinal fluid drainage device: (4) Postoperative anemia: (5) Volume overload: Plan: Will defer pain control and hemodynamic parameters to the vascular surgery team. Postoperative hemoglobin trending downwards. Dr. Brock made aware this morning by RN. He placed orders for a CTA of her abdomen and pelvis. 2 units of blood ordered as well. Suspect an element of hemodilution as well. Patient hypoxemic with crackles. Recommend discontinuing IV fluids and giving the patient a dose of diuretic. Will defer to the vascular surgery team. Case discussed with bedside nursing as well. Admission and Anticipated Discharge Date Admission Date: April 22, 2022 Subjective Patient seen and examined this morning. She appears much more comfortable and denies any pain at this time. She has had some brief episodes of hypoxemia requiring supplemental oxygen. Review of Systems Review of Systems: All systems reviewed & are unremarkable except as noted in HPI & below Physical Exam Physical Exam: Constitutional: Patient appears to be of their stated age. Patient comfortable. Eyes: Pupils are equal round and reactive to light. Conjunctivae are normal. Anicteric sclera. Ears nose, mouth and throat: No signs of trauma Neck: Trachea is midline. Visual inspection is normal. Respiratory: Crackles bilaterally. No significant increased work of breathing. Cardiovascular: Regular rate and rhythm. Distal right lower extremity pulses intact. Left AKA noted. Gastrointestinal: Normal bowel sounds, soft, nontender and nondistended. No hepatosplenomegaly noted. Musculoskeletal: No cyanosis. Patient is able to move all extremities. Skin: No rashes, warm dry and intact. Neurologic: No obvious focal neurological deficits seen. Psychiatric: Alert and oriented x3 with a euthymic affect. Results & Data Results & Data ([facility]) Vital Signs (Past 12 Hours) Vital Signs Temp Pulse Resp BP Pulse Ox 04/23/22 07:45 94 04/23/22 07:40 87 L 04/23/22 07:34 36.9 C 04/23/22 07:00 78 12 124/42 L 95 04/23/22 06:00 83 15 107/46 L 95 04/23/22 05:00 82 13 124/48 L 96 04/23/22 04:00 82 16 117/47 L 95 04/23/22 03:00 83 15 121/49 L 96 04/23/22 02:00 80 17 96/40 L 96 04/23/22 01:00 84 10 L 106/52 L 96 04/23/22 00:00 84 12 95/43 L 96 04/22/22 23:00 86 19 101/42 L 97 04/22/22 22:00 36.7 C 85 19 93/45 L 96 04/22/22 21:00 102 H 20 130/82 97 Coding Level of Care Code 38951 Subseq Hosp Care Lvl 2 Diagnoses Stenosis of thoracic aorta Q25.1 Iliac artery stenosis, bilateral I77.1 Presence of cerebrospinal fluid drainage device Z98.2 Postoperative anemia D64.9 Volume overload E87.70
[2022-04-23] MEDS ORDERED: OPTIRAY 320 125ml IV ONE (09:32)
[2022-04-23] MEDS: ASPIRIN 81 MG ECTAB PO SCH ×2 (10:30→13:19)
[2022-04-23] MEDS: CALCIUM CARBONATE 1250MG TAB PO SCH (10:30)
--- NOTE | 2022-04-23 10:30 | CT Scan Report ---
CT ANGIOGRAPHY OF THE ABDOMEN AND PELVIS CLINICAL HISTORY: RO bleed, SP TEVAR COMPARISON STUDY: Renal ultrasound September 04, 2019. TECHNIQUE: Helical axial images of the abdomen and pelvis were obtained during arterial phase followi ng intravenous injection of 119 cc Optiray 320 IV. Sagittal and coronal reconstructions were viewed a s well as maximal intensity projections on an independent 3-D workstation. Automated exposure control was utilized for the study. A dose lowering technique was utilized adhering to the principles of [place]. FINDINGS: Cardiomegaly is noted. A moderate sized hiatal hernia with partially intrathoracic stomach is noted. No pneumatosis, free air or portal venous gas is present. Mild dilatation of the common jose e duct is likely related to cholecystectomy. This exam is mildly compromised by motion artifact. Panc reatic glandular atrophy is noted. No pancreatic ductal dilatation is identified. There is no evidenc e for a bowel obstruction. There is mild wall thickening of the descending colon with mild pericoloni c stranding. Colonic diverticulosis is noted. There is no evidence for diverticulitis. Multiple suspe cted splenic infarcts are noted. These involve approximately 60% of the spleen. There is trace perisp lenic fluid. Mild left hydronephrosis is noted. Excreted contrast within the left collecting system a nd proximal ureter is noted. The left hydronephrosis may be due to mass effect upon the left ureter b y left retroperitoneal hematoma. Overall, there is moderate acute left retroperitoneal hemorrhage. Sm all amount of acute right retroperitoneal hemorrhage is noted, adjacent to the psoas muscle. This is predominantly within the left perinephric and anterior pararenal space. This extends into the pelvis. Source for the hemorrhage is not clear on this exam. No active extravasation is identified. Hallman ba lloon, gas and contrast within the bladder present. There is mild stenosis at the origin of the celiac axis. Extensive plaque within the abdominal aorta is noted. Superior mesenteric artery is patent. Inferior mesenteric artery is patent. Bilateral renal arteries are patent. There is focal outpouching/dilatation of the distal abdominal aorta, measuring 1.8 cm in caliber. Bilateral common iliac artery stents are patent. The right common iliac, internal iliac and external iliac arteries are patent. The right common femoral and visualized portions of the right superficial femoral arteries are patent. There is mild stranding within both groins. No fluid collection is identified. Left common iliac stent is patent. There is short segment dissection within the left external iliac a rtery. There is moderate stenosis of the left common femoral artery. Note is made of occlusion of the proximal left superficial femoral artery. Left profunda is patent. IMPRESSION: 1. Moderate left retroperitoneal acute hemorrhage. Small amount of acute right retroperitoneal hemorr shayan. Source for the hemorrhage not clear on this exam. No active extravasation. 2. Multiple splenic infarcts. 3. Mild wall thickening of the descending colon with pericolonic stranding. This represents a nonspec ific colitis. Ischemic etiology is within the differential. 4. Patent bilateral common iliac artery stents. Short segment dissection within the left external yevgeniy ac artery. Age indeterminate occlusion of the proximal left superficial femoral artery. 5. Mild left hydronephrosis. This may be due to mass effect upon the proximal left ureter by the retr operitoneal hematoma. ACT 112: Negative or not required by law. Electronically signed by: Rad Jessica M.D. 04/23/2022 10:28 AM
[2022-04-23] MEDS: PANTOprazole 40 MG TAB PO SCH (10:31)
[2022-04-23] MEDS: LOVASTATIN 20 MG TAB PO SCH (10:31)
[2022-04-23] MEDS: CHOLECALCIFEROL 1,000 UNITS 25 MCG TAB PO SCH (10:31)
[2022-04-23] MEDS: METOPROLOL TARTRATE 25 MG TAB PO SCH ×2 (10:33→20:23)
[2022-04-23] MEDS: metFORMIN HCL 500 MG TAB PO SCH (12:03)
--- NOTE | 2022-04-23 14:27 | Surgery Progress Note ---
Date of Service April 23, 2022 Assessment & Plan (1) Iliac artery stenosis, bilateral: Plan: Pt overall doing ok after BL ilaic stenting yesterday. Spinal drainage has been removed. Post op anemia, but has remained stable. Will continue to monitor. Discussed with Dr Brock, will transfer to floor. Admission and Anticipated Discharge Date Admission Date: April 22, 2022 Subjective 81 yo f POD #1 after BL iliac stenting by Dr Brock, seen in f/u today. Pt overall with c/o fatigue and mild L groin discomfort. No other complaints. Hgb 7.1 today, transfused 1 U PRBC. VSS. Review of Systems Review of Systems: All systems reviewed & are unremarkable except as noted in HPI & below Physical Exam Constitutional: WD/WN, vitals as above comfortable Cardiovascular: Rate/Rhythm: regular rate and regular rhythm Vessels: femoral pulses present, posterior tibial pulses present, dorsalis pedis pulses present and radial pulses present; + abnormal peripheral pulses Gastrointestinal (Abdomen): Inspection/Auscultation: normal bowel sounds Percussion/Palpation: + abdomen tender (L groin area, mild local ecchymosis) and abdomen soft Musculoskeletal: no cyanosis or clubbing, extremities motor strength 5/5 Neurologic: moves all extremities and awake; no focal motor deficits and not confused Psychiatric: A+Ox3, euthymic affect Results & Data ([facility]) Vital Signs (Past 12 Hours) Vital Signs Temp Pulse Resp BP Pulse Ox 04/23/22 13:21 36.7 C 84 15 148/53 H 94 04/23/22 12:21 36.7 C 77 17 153/57 H 95 04/23/22 11:21 37 C 92 H 17 136/56 L 94 04/23/22 10:51 37.6 C H 99 H 19 155/60 H 96 04/23/22 10:36 37.5 C 100 H 19 137/48 L 93 04/23/22 10:18 36.9 C 84 14 157/48 H 93 04/23/22 07:45 94 04/23/22 07:40 87 L 04/23/22 07:34 36.9 C 04/23/22 07:00 78 12 124/42 L 95 04/23/22 06:00 83 15 107/46 L 95 04/23/22 05:00 82 13 124/48 L 96 04/23/22 04:00 82 16 117/47 L 95 04/23/22 03:00 83 15 121/49 L 96
[2022-04-23 18:57] LABS: Hematocrit (blood only) 33.3 % (37-47); Hemoglobin 11.2 g/dL (12.0-16.0)
[2022-04-23] MEDS: ACETAMINOPHEN 500 MG TAB PO PRN (20:21)
[2022-04-23] MEDS: MAGNESIUM OXIDE 400 MG TAB PO SCH (20:23)
[2022-04-23] MEDS: MIRABEGRON ER 25 MG TAB PO SCH (20:23)
[2022-04-23] MEDS: CYANOCOBALAMIN (B-12) 500 MCG TABLET PO SCH (20:23)
[2022-04-24] MEDS: ACETAMINOPHEN 500 MG TAB PO PRN ×2 (02:53→10:16)
[2022-04-24] MEDS: LOVASTATIN 20 MG TAB PO SCH (08:16)
[2022-04-24] MEDS: PANTOprazole 40 MG TAB PO SCH (08:16)
[2022-04-24] MEDS: METOPROLOL TARTRATE 25 MG TAB PO SCH (08:17)
[2022-04-24] MEDS: CHOLECALCIFEROL 1,000 UNITS 25 MCG TAB PO SCH (08:17)
[2022-04-24] MEDS: CALCIUM CARBONATE 1250MG TAB PO SCH (08:17)
[2022-04-24] MEDS: ASPIRIN 81 MG ECTAB PO SCH (08:17)
--- NOTE | 2022-04-27 10:50 | Discharge Summary ---
Date of Service April 27, 2022 Admission HPI Per Admitting Provider Chief Complaint rm#5 here for consult for descending aorta stenosis, has had chest pain which initiated workup when stenosis was found History of Present Illness I the pleasure of seeing Katheryn today for evaluation of her aortic stenosis. As you know she is a 81-year-old female who was found to have stenosis of her ascending aorta at the T9 level on a CTA of her chest. 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 She ambulates with crutches. She denies any symptoms of claudication when she ambulates. She denies any rest pain in her foot. She denies any color changes or ulcerations of her foot. She denies any abdominal complaints of postprandial pain. She denies any history or knowledge of renal insufficiency. Review of Systems 10 systems are reviewed. The positive findings were occasional joint swelling chest pain times once which resolved. She has irritable bowel syndrome with occasional diarrhea and heartburn. She gets frequent bladder infections with slight incontinence. Rest of her review of systems is as the HPI. She denies any abdominal surgery other than the gallbladder. Physical Exam Vitals & Measurements HR: 78 (Monitored) BP: 152/68 SpO2: 96% Input and Output - Last 24 hours (Last 8 hours) No I/O Data Found: On physical exam the patient is awake alert and oriented x3. She is in no apparent distress. Her blood pressure is 140/68 on the left and 152/68 on the right. Radials and carotids are +2 bilaterally. Lungs are clear heart had a regular rhythm. Abdominal exam is benign. No pulsatile masses appreciated. Femorals and pedal's on the right side are +1. The left femorals +1. She has good capillary refill in the right foot. Neurologic exam is grossly intact to motor and sensory function. CT angio was reviewed and this showed at the T9 level severe stenosis of the descending aorta with a large amount of plaque formation. Assessment/Plan 1. Stenosis of thoracic aorta At this point our discussion was whether to leave this alone until it gets worse or she develops symptoms ordered prophylactically due to the location covered with a covered stent and dilated the aorta at that level. We went over the options, risks, and benefits. At this point she would like to go ahead with intervention and try to dilate this area. She understood the risks and options and benefits involved. This will be scheduled in the near future. Thank you very much for letting us participate in the care of this patient. Sincerely, Mary Ann Brock MD Problem List/Past Medical History Ongoing Right shoulder pain Stenosis of thoracic aorta Historical No qualifying data Medications Inpatient No active inpatient medications Home Aspir 81 calcium carbonate esomeprazole, 40 mg, PO, Daily Nelson-Iron, See Instructions lovastatin, 20 mg, PO, Daily metFORMIN, 500 mg, PO, bid metoprolol tartrate, 12.5 mg, PO, bid Myrbetriq 50 mg oral tablet, extended release, 50 mg= 1 tab, PO, Daily Toviaz, 6 mg, PO, Daily Vitamin B-12 Vitamin D3, 3000, PO, Daily Allergies penicillin (hives internal and external) Social History Smoking Status Never smoked cigarettes Signature Line Electronic Signature on File Jose Brock MD Author Signature Dt/Tm: 03/19/2022 11:00 AM Passenger Service Representative Greg Breen [facility] [address], [address] [place] [address] EJS Result Type: .Outpt Ltr Date of Service: March 19, 2022 11:00 EDT Authorization Status: Final Subject: Consult Note Author or Import Date: MD Brock Eugene J on March 19, 2022 11:00 EDT Verified By: MD Brock Eugene J on March 19, 2022 11:00 EDT Encounter info: [id number], [facility], Clinic, 03/19/2022 - 03/19/2022 Admission Exam Per Admitting Provider On physical exam the patient is awake alert and oriented x3. She is in no apparent distress. Her blood pressure is 140/68 on the left and 152/68 on the right. Radials and carotids are +2 bilaterally. Lungs are clear heart had a regular rhythm. Abdominal exam is benign. No pulsatile masses appreciated. Femorals and pedal's on the right side are +1. The left femorals +1. She has good capillary refill in the right foot. Neurologic exam is grossly intact to motor and sensory function. CT angio was reviewed and this showed at the T9 level severe stenosis of the descending aorta with a large amount of plaque formation. Principal Diagnosis 1. s/p BL iliac artery stenting 2. Postop anemia 3. Aortoiliac occlusive disease Discharge Exam Constitutional WD/WN, vitals as above comfortable Cardiovascular Rate/Rhythm: regular rate and regular rhythm Vessels: femoral pulses present, posterior tibial pulses present, dorsalis pedis pulses present and radial pulses present; + abnormal peripheral pulses Gastrointestinal (Abdomen) Inspection/Auscultation: normal bowel sounds Percussion/Palpation: + abdomen tender (L groin area, mild local ecchymosis) and abdomen soft Musculoskeletal no cyanosis or clubbing, extremities motor strength 5/5 Neurologic moves all extremities and awake; no focal motor deficits and not confused Psychiatric A+Ox3, euthymic affect Discharge Data Allergies Allergy/AdvReac Type Severity Reaction Status Date / Time Penicillins Allergy Unknown Hives, Verified 04/22/22 08:46 throat swelling pollen extracts Allergy Unknown Seasonal Verified 04/22/22 08:46 allergies dobutamine Allergy Verified 04/22/22 08:46 sulfamethoxazole Allergy Hives Verified 04/22/22 08:46 [From Bactrim] trimethoprim [From Bactrim] Allergy Hives Verified 04/22/22 08:46 codeine AdvReac Mild N/V Verified 04/22/22 08:46 Consultations 04/22/22 15:54 Consult Sampling Expert Routine Procedures Performed Operation Date: 04/22/22 10:40 Actual Procedures p Aortogram, Bilateral Iliac Artery Stenting, Bilateral Femoral Artery Mechanical Closure (Bilateral) - Jose Brock MD Ordered Studies 04/22/22 EV iliac balloon stent Routine 04/22/22 10:26 US EV guide vascular access Routine 04/23/22 08:31 CTA abdomen pelvis w con [CT angio abdomen pelvis w con] Stat Hospital Course (1) Iliac artery stenosis, bilateral: Pt overall doing ok on POD #2 after BL ilaic stenting. Spinal drainage has been removed. Post op anemia, but VS have remained stable, hgb improved after 2 u PRBC. D/c home. Total Time Total Time Spent Total Time Spent (In Minutes): 0 Discharge Plan Discharge Items Patient Disposition: Home - Self-Care Reason For Visit: Stenosis Descending Thoracic Aorta Discharge Diagnosis: Right iliac artery stenosis, left iliac artery occlusion Activity: Resume your previous activity Lifting: Gradually increase as tolerated Bathing: No limitations Exercise/Sports: Gradually increase as tolerated Non-emergency contact: Surgeon Call non-emergency contact if: your temperature is above 101.5, your wound has increased redness, your wound has increased drainage and your wound pain has increased Follow-up/Referrals: Farhat Lynch DO [Primary Care Provider] - Diet: Heart Healthy Addtl Attending Provider Instructions: ACTIVITY RECOMMENDATIONS: See Above SPECIAL CARE INSTRUCTIONS: Call your doctor if: * Temperature above 101 degrees * Pain not relieved by pain medicine ordered * There is increased drainage or redness from any incision * You have any unanswered questions or concerns. Call [phone] to schedule a follow up appointment if one not already scheduled. Pending Studies at Discharge: No Stand-Alone Forms: My [facility] [employer], Smoking Cessation Medications and DC Order Prescriptions: New oxycodone-acetaminophen [Percocet] 5-325 mg tablet 1 tab PO Q8H PRN (Reason: pain) Qty: 20 RF: 0 Continued metformin 500 mg tablet 500 mg PO BID Qty: 180 RF: 3 fesoterodine 8 mg tablet extended release 24 hr 8 mg PO QAM RF: 0 acetaminophen [Tylenol Extra Strength] 500 mg tablet 500 mg PO Q6H PRN (Reason: Pain) RF: 0 metoprolol tartrate 25 mg tablet See Rx Instructions PO .COMPLEX Qty: 135 RF: 3 aspirin 81 mg tablet,delayed release (DR/EC) 81 mg PO QAM RF: 0 cyanocobalamin (vitamin B-12) 1,000 mcg capsule 1,000 mcg PO QPM Qty: 90 RF: 0 calcium carbonate 600 mg calcium (1,500 mg) tablet 600 mg PO QAM RF: 0 cholecalciferol (vitamin D3) 1,000 unit capsule 3,000 units PO QAM RF: 0 esomeprazole magnesium 40 mg capsule,delayed release(DR/EC) 40 mg PO QAM RF: 0 gabapentin 300 mg capsule 300 mg PO QAM PRN (Reason: pain) RF: 0 lovastatin 20 mg tablet 20 mg PO QAM RF: 0 magnesium oxide 250 mg magnesium tablet 250 mg PO QPM RF: 0 Myrbetriq 50 mg tablet extended release 24 hr 50 mg PO QPM RF: 0 Discharge Orders: Discharge Order (Routine); Ordered 04/24/22 Ordered By: Jose Brock Admission Data Admit Date/Time: 04/22/22 07:13 Attending Provider: Jose Brock Admit Provider: Jose Brock Primary Care Provider: Farhat Lynch Other Providers: Mario Schmidt ; Farhat Cortez ; Bogdan Brink ; Terrell Lisa ; Colton Milan ; Gabino Potter ; Rafal Chamberlain ; Alejo Dougherty ; Awa España Other Interventions: Discharge Summary Assessment (RN) Last Done: 04/24/22 11:27
--- NOTE | 2022-04-28 06:14 | Coding Query ---
ANEMIA To promote full compliance with coding requirements relating to patient care, physician participation is requested in all cases of inpatient coder uncertainty. Please assist us with the question(s) below: Coding Question(s): The record reflects the following clinical findings: * Postop HGB 7.1, pt transfused one UPC. If these findings are indicative of anemia, please specify the known or suspected type by placing an "X" within the parenthesis (x). If other, please document type. Examples are: (x ) Acute blood loss anemia ( ) Acute Postoperative blood loss anemia ( ) Acute postoperative anemia due to dilutional fluids ( ) Chronic blood loss anemia ( ) Anemia of chronic disease ( ) Aplastic anemia ( ) Anemia due to renal disease ( ) Anemia in neoplastic disease ( ) Iron deficient anemia ( ) Anemia, unspecified or other ( ) Other: (please specify) ( ) Unable to determine Thank you CARROL Curry [facility]
--- NOTE | 2022-04-28 06:20 | Coding Query ---
CODING QUERY To promote full compliance with coding requirements relating to patient care, provider participation is requested in all cases of motorcycle sales associate uncertainty. Please assist us with the question(s) below: Coding Question(s): 04/23 Critical care note documented left and right small acute retroperitoneal hemorrhage. Seeking to clarify if this is expected postopertive or a complication of the procedure. Pt was tranfused postop with hgb of 7.1. Please check below. Thank you . Miguel Angel Herbert [facility] Physician's Response(s): The retroperitoneal hemorrhage is expected postop x__ The retroperitoneal hemorrhage is a complication of the procedure Cannot clinically correlate if the retroperitoneal hemorrhage is a complication of the procedure Other: Please document: Principal Diagnosis: "that condition established after study, to be chiefly responsible for occasioning the admission of the patient to the hospital for care." Co-Existing Principal Diagnosis: "when two or more diagnoses equally meet the criteria for principal diagnosis as determined by the circumstances of admission, diagnostic work up, and/or therapy provided, and the Alphabetic Index, Tabular List, or another coding guideline does not provide sequencing direction, any one of the diagnoses may be sequenced first." "When the physician has documented what appears to be a current diagnosis in the body of the record, but has not included the diagnosis in the final diagnostic statement, the physician should be asked whether the diagnosis should be added." (Source Coding Clinic 2 QTR90. p3-4) MARY ANN
== END 2022-04-24 14:43 | disposition home or self-care (01) | DRG 253 ==
LOC: ASU 08:21 → 1E 08:22
PROC: M.TEVAR (2022-04-22 10:40)

== ENCOUNTER 2024-09-02 18:34 | Observation (INO) ==
[2024-09-02 19:08] LABS: Basophils # (auto) 0.05 K/uL (0.00-0.20); Eosinophils # (auto) 0.18 K/uL (0.00-0.50); Eosinophils % (auto) 3.5 %; Hematocrit (blood only) 33.1 % (37.0-47.0); Hemoglobin 10.5 g/dl (12.0-16.0); Immature Granulocytes # (auto) 0.01 K/uL (0.01-0.20); Immature Granulocytes % (auto) 0.2 %; Lymphocytes # (auto) 2.04 K/uL (1.20-3.40); Lymphocytes % (auto) 39.2 %; Mean Corpuscular Hemoglobin 26.9 pg (25.0-34.0); Mean Corpuscular Hgb Conc 31.7 g/dL (32.0-36.0); Mean Corpuscular Volume 84.9 fL (80.0-100.0); Mean Platelet Volume 11.8 fL (9.4-12.4); Monocytes # (auto) 0.51 K/uL (0.11-0.59); Monocytes % (auto) 9.8 %; Neutrophils # (auto) 2.42 K/uL (1.40-6.50); Neutrophils % (auto) 46.3 %; Platelet Count 233 K/uL (130-400); RDW Coefficient of Variation 13.7 % (11.5-14.5); RDW Standard Deviation 42.3 fL (36.4-46.3); White Blood Count 5.21 K/ul (4.8-10.8)
[2024-09-02 19:16] LABS: Albumin Globulin Ratio 1.1 (0.9-2); BUN Creatinine Ratio 17.8 (10-20); Bilirubin,Total 0.2 mg/dl (0.2-1.0); Calcium 9.2 mg/dl (8.6-10.3); Creatinine Clr Calc Pharmacy 33.7 ml/min; Globulin 3.5 gm/dl (2.5-4.0); Potassium 3.2 mmol/L (3.5-5.1); Total Protein 7.5 gm/dl (6.0-8.3)
[2024-09-02 19:23] LABS: Troponin I High Sensitivity 4.3 pg/ml (0-14)
--- NOTE | 2024-09-02 19:24 | Emergency Department Note ---
Impression & Plan Chest pain, Increased nausea and vomiting ED Provider Note NAME: REGLA ROUSSEAU AGE: 83 SEX: F : 1940 ARRIVES VIA: Ambulance INFORMANT: Patient, ED PROVIDER(S): Phu Mercer MD CHIEF COMPLAINT: Chest pain HPI: This is a 83-year-old female presenting for chest pain. Patient notes that she has had no previous cardiac history. She does have history of type 2 diabetes. She reports chest pain for the past 2 days. This is not exertional or pleuritic. No associated shortness of breath. She notes a pressure-like sensation in the bottom of her sternum. She does note some slight nausea. She notes some slight indigestion sensation. There was no fevers, chills, or vomiting. ROS: See above HPI for pertinent positives & negatives. A total of 10 systems reviewed and were otherwise negative. PAST MEDICAL HISTORY: See Below PAST SURGICAL HISTORY: See Below FAMILY HISTORY: See Below SOCIAL HISTORY: See Below HOME MEDICATIONS: See Below ALLERGIES: See Below VITALS: See Below PHYSICAL EXAMINATION: General: resting comfortably in no acute distress Head: Normocephalic and atraumatic Eyes: Normal inspection, extraocular muscles intact Ear, nose, throat: Normal external exam Neck: Normal range of motion Respiratory: lungs clear to auscultation bilaterally Cardiovascular: Regular rate/rhythm, no murmur GI: soft, nontender, no guarding or rebound Extremities: Left BKA, right lower extremity normal, upper extremities show no obvious abnormality, normal pulses Neuro: The patient awake and alert, appropriately conversive, no focal deficits, symmetric faces Skin: Warm, dry, and intact MEDICAL DECISION MAKING: This an 83-year-old female presenting for chest pain. Will do screening EKG, blood work, chest x-ray. Low concern for PE as she has no pleuritic symptoms. Her pulse is slight elevated around 99. No hypoxia. -Bloodwork is reviewed with slightly low potassium. Otherwise no significant elevated troponin. Patient's is anemic at 10.5. -At this time patient given potassium her patient vomited this back up. -Chest Xray independently interpreted by me showing no pneumothorax, focal opacity, or pleural effusions. -Patient continues to note chest pain as well as indigestion sensation. -Patient never had any cardiac workup including stress test. Cardiac catheterization. -After discussion with family, discussed option including admission versus discharge. Patient would prefer admission at this time for further cardiac rule out. -Dr. Mayer consulted for admission. Differential diagnosis: ACS, PE, pressure infection, pneumonia ER treatment provided: See below Independent History obtained from: Son, Diagnostics interpreted by me: ECG: ECG independently interpreted by me with normal sinus rhythm, rate of 83, normal axis, normal IL, normal QRS, normal QTc, no ST segment elevations consistent with STEMI criteria Cardiac Monitoring: An order was placed for continuous cardiac monitoring. The monitor shows a rate of 84 with sinus rhythm. Laboratory studies: As stated above and show below. Imaging studies: See below. Past Med/Surg History Problem List (Updated 09/04/24 @ 00:35 by Phu Mercer MD) Increased nausea and vomiting (Acute) Chest pain (Acute) Anemia Chest pain Mild cognitive impairment Hypertension (Acute) Mild coronary artery disease (Chronic) Non-obstructive CAD (2010) Carotid artery stenosis (Chronic) Aortoiliac stenosis Follow[facility] by [facility] Vascular, b/l iliac artery stent 05/2022 Stenosis of thoracic aorta Type II diabetes mellitus with complication (Chronic) Hypercholesterolemia (Acute) Urge and stress incontinence (Chronic) Osteoporosis (Acute) Irritable bowel syndrome (Acute) GERD without esophagitis (Chronic) Phantom limb syndrome Gait instability Medical History (Updated 09/04/24 @ 00:35 by Phu Mercer MD) Primary osteoarthritis of right knee Volume overload Postoperative anemia Presence of cerebrospinal fluid drainage device Large hiatal hernia Per 03/10/22 Chest CTA 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 Hypomagnesemia Suspected to be 2/2 PPI - Started on Mg Oxide 250mg/day Recurrent UTI (urinary tract infection) Mixed conductive and sensorineural hearing loss of both ears Finger deformity Left middle finger Surgical History History of tubal ligation History of tonsillectomy History of hemorrhoidectomy History of hand surgery History of D&C History of colonoscopy History of cataract surgery R/L S/P cholecystectomy S/P knee replacement Right S/P AKA (above knee amputation) Left leg - R/t traumatic injury age 23 Family History Father Emphysema of lung Acute myocardial infarction Hiatal hernia Rheumatoid arthritis Cardiac disorder Myocardial infarction Lung cancer Mother Hypertension Malignant neoplasm of uterus Cardiac disorder Ovarian cancer Unknown Osteoarthritis Diabetes Grandmother Diabetes Aunt Diabetes Uncle Diabetes Grandmother Malignant neoplasm of stomach Denies family history of Prostate cancer Breast cancer Colorectal cancer Stroke Social History Smoking Status: Never smoker Second Hand Exposure: No; Do You Dip or Chew Tobacco: No; Hx Alcohol Use: No Hx Substance Use: No Preferred Language: Serbian Communication Ability: Effective Visual Impairment: Limited Hearing Ability: Use of Hearing Aid Staff Assistant Required: No Beliefs That Will Affect Care: None marital status: / Current Living Situation: Alone Current Living Situation Comment: Family to help post op current occupational status: disabled How many Children do You have: 2 Feels Safe at Home: Yes Childhood Exposure to Second-Hand Smoke: No Diet: regular caffeine: No during the past year weight has: remained stable Dental Care, Regularly: Yes Physical Activity Frequency: Does not Exercise Seatbelt Use: always Sunscreen Use: No Assistive Devices: Crutches, Hearing Aid - Right and Wheelchair Allergies Allergies Allergy/AdvReac Type Severity Reaction Status Date / Time Penicillins Allergy Unknown Hives, Verified 06/29/24 08:28 throat swelling pollen extracts Allergy Unknown Seasonal Verified 06/29/24 08:28 allergies dobutamine Allergy Unknown Verified 06/29/24 08:28 sulfamethoxazole Allergy Hives Verified 06/29/24 08:28 [From Bactrim] trimethoprim [From Bactrim] Allergy Hives Verified 06/29/24 08:28 codeine AdvReac Mild N/V Verified 06/29/24 08:28 Home Meds Home Medications Medication Instructions Recorded Confirmed aspirin 81 mg tablet,delayed 81 mg PO QAM 05/15/19 09/03/24 release calcium carbonate 600 mg PO QAM 05/15/19 09/03/24 cholecalciferol (vitamin D3) 25 3,000 units PO QAM 05/15/19 09/03/24 mcg (1,000 unit) capsule cyanocobalamin (vitamin B-12) 1,000 mcg PO QPM #90 caps 05/15/19 09/03/24 1,000 mcg capsule gabapentin 300 mg capsule 300 mg PO QAM PRN pain 04/14/22 09/03/24 magnesium oxide 250 mg PO BID 07/31/22 09/03/24 metoprolol tartrate 25 mg tablet 25 mg PO QPM 12/07/23 09/03/24 fesoterodine 4 mg tablet,extended 4 mg PO DAILY 06/29/24 09/03/24 release 24 hr ferrous sulfate 325 mg (65 mg 325 mg PO DAILY 09/03/24 09/03/24 iron) tablet Previous Rx's Medication Instructions Recorded blood sugar diagnostic (EasyMax #50 ea 08/31/22 strips) lancets (Accu-Chek Softclix #100 ea 08/31/22 Lancets) esomeprazole magnesium 40 mg 40 mg PO DAILY #90 caps 11/05/23 capsule,delayed release metoprolol tartrate 25 mg tablet 12.5 mg (1/2 x 25 mg) PO QAM 90 11/18/23 days #45 tabs lovastatin 20 mg tablet 20 mg PO QAM #90 tabs 02/29/24 Results & Data (ED) Vital Signs Vital Signs - 24 hr 09/02/24 18:41 09/02/24 18:41 09/02/24 18:41 Temperature 36.9 C Temperature Source Oral Pulse Rate 98 H Pulse Rate [Apical] 98 H Respiratory Rate 18 16 Respiratory Effort / Characteristics Respiratory Depth Respiratory Pattern Blood Pressure 150/78 H Blood Pressure [Right Radial Artery] 150/78 H Blood Pressure Mean 102 Blood Pressure Mean [Right Radial Artery] 102 Pulse Oximetry 95 95 95 Oxygen Delivery Method Room Air Room Air Room Air Sepsis Recent Fever Within 48 Hours No Sepsis New/Unexplained Change in Mental Status N/A Sepsis Action Taken by Nursing No Action Required 09/02/24 18:41 09/02/24 18:43 09/02/24 19:00 Temperature Temperature Source Pulse Rate 95 H 98 H Pulse Rate [Apical] 99 H Respiratory Rate 16 16 Respiratory Effort / Characteristics Non-Labored Respiratory Depth Normal Respiratory Pattern Regular Blood Pressure Blood Pressure [Right Radial Artery] 135/84 Blood Pressure Mean Blood Pressure Mean [Right Radial Artery] 101 Pulse Oximetry 95 96 Oxygen Delivery Method Room Air Room Air Sepsis Recent Fever Within 48 Hours Sepsis New/Unexplained Change in Mental Status Sepsis Action Taken by Nursing 09/02/24 20:30 Temperature Temperature Source Pulse Rate Pulse Rate [Apical] 86 Respiratory Rate 14 Respiratory Effort / Characteristics Non-Labored Respiratory Depth Normal Respiratory Pattern Regular Blood Pressure Blood Pressure [Right Radial Artery] 158/67 H Blood Pressure Mean Blood Pressure Mean [Right Radial Artery] 97 Pulse Oximetry Oxygen Delivery Method Sepsis Recent Fever Within 48 Hours Sepsis New/Unexplained Change in Mental Status Sepsis Action Taken by Nursing Laboratory Data 09/03/24 04:51 09/03/24 04:51 Lab Results 09/02/24 09/02/24 Range/Units 18:50 21:19 WBC 5.21 (4.8-10.8) K/ul RBC 3.90 L (4.20-5.40) M/uL Hgb 10.5 L (12.0-16.0) g/dl Hct 33.1 L (37.0-47.0) % MCV 84.9 (80.0-100.0) fL MCH 26.9 (25.0-34.0) pg MCHC 31.7 L (32.0-36.0) g/dL RDW Std Deviation 42.3 (36.4-46.3) fL RDW Coeff of Ann Marie 13.7 (11.5-14.5) % Plt Count 233 (130-400) K/uL MPV 11.8 (9.4-12.4) fL Immature Gran % (Auto) 0.2 % Neut % (Auto) 46.3 % Lymph % (Auto) 39.2 % [place] % (Auto) 9.8 % Eos % (Auto) 3.5 % Baso % (Auto) 1.0 % Neut # (Auto) 2.42 (1.40-6.50) K/uL Lymph # (Auto) 2.04 (1.20-3.40) K/uL [place] # (Auto) 0.51 (0.11-0.59) K/uL Eos # (Auto) 0.18 (0.00-0.50) K/uL Baso # (Auto) 0.05 (0.00-0.20) K/uL Immature Gran # (Auto) 0.01 (0.01-0.20) K/uL Sodium 144 (136-145) mmol/L Potassium 3.2 L (3.5-5.1) mmol/L Chloride 104 (98-107) mmol/L Carbon Dioxide 31 (21-32) mmol/L Anion Gap 9 (3-11) BUN 18 (6-23) mg/dl Creatinine 1.01 (0.6-1.2) mg/dl Est Cr Clr Drug Dosing 33.7 ml/min eGFR 55.93 BUN/Creatinine Ratio 17.8 (10-20) Glucose 148 H (70-99(Fasting)) mg/dl Calcium 9.2 (8.6-10.3) mg/dl Magnesium 1.8 (1.7-2.4) mg/dl Total Bilirubin 0.2 (0.2-1.0) mg/dl AST 23 (13-39) U/L ALT 16 (7-52) U/L Alkaline Phosphatase 67 (34-104) U/L Troponin I High Sens 4.3 5.5 (0-14) pg/ml Total Protein 7.5 (6.0-8.3) gm/dl Albumin 4.0 (3.4-5.0) gm/dl Globulin 3.5 (2.5-4.0) gm/dl Albumin/Globulin Ratio 1.1 (0.9-2) Lipase 15 (11-82) U/L Administered Medications Discontinued Medications Pantoprazole Sodium (Protonix) 40 mg in 10 mls @ 5 mls/min IV NOW ONE Stop: 09/02/24 22:31 Last Admin: 09/02/24 22:40 Dose: 5 mls/min Documented By: JOHN Lactated Ringer's (Lr) 1,000 mls @ 80 mls/hr IV .[id number] JONG Stop: 09/03/24 22:59 Last Infusion: 09/03/24 07:52 Dose: Infused Documented By: Admin: 09/02/24 23:51 Dose: 80 mls/hr Documented By: BILLIE Pantoprazole Sodium (Protonix) 40 mg in 10 mls @ 5 mls/min IV BID JONG Stop: 10/03/24 08:59 Last Admin: 09/03/24 08:27 Dose: 5 mls/min Documented By: MARITZA Metoprolol Tartrate (Metoprolol Tartrate 25 Mg Tab) 12.5 mg PO QAM JONG Stop: 10/03/24 08:59 Last Admin: 09/03/24 08:27 Dose: 12.5 mg Documented By: MARITZA Oxybutynin Chloride (Oxybutynin Chloride Xl 5 Mg Tabcr) 5 mg PO DAILY JONG Stop: 10/03/24 08:59 Last Admin: 09/03/24 08:27 Dose: 5 mg Documented By: MARITZA Potassium Chloride (Potassium Chloride Crtab 20 Meq Tabcr) 40 meq PO NOW STA Stop: 09/02/24 19:23 Last Admin: 09/02/24 19:31 Dose: 40 meq Documented By: KMLeonidas Discharge Plan Visit Data Chief Complaint: Cardiac Assessment Stated Complaint: CHEST PAIN X COUPLE DAYS ED Provider: Phu Mercer Discharge Problem: Chest pain, Increased nausea and vomiting Patient Disposition: Admitted As Inpatient Discharge Instructions Interventions: ED Discharge Assessment Last Done: 09/02/24 23:02
[2024-09-02] MEDS: POTASSIUM CHLORIDE CRTAB 20 MEQ TABCR PO STA (19:31)
[2024-09-02 21:25] LABS: Magnesium 1.8 mg/dl (1.7-2.4)
--- NOTE | 2024-09-02 21:26 | History & Physical Report ---
Date of Service September 02, 2024 Assessment & Plan (1) Chest pain: Plan: Pt is a 83 yo female with PMH of thoracic aortic stenosis, HTN, HLD, DM, urinary incontinence, and osteoarthritis presenting to the ER d/t chest pain. Chest pain - per pt, began over the last 2 days intermittently without significant triggering factors - lab work significant for Hgb 10.5, Cr 1.01, trop negative x2 - EKG showing no significant acute ST changes- questionable ST changes noted in lateral leads - although suspicion low for cardiac cause of chest pain, ordered echo to complete cardiac work up; if suspicion remains for cardiac chest pain, would consider stress test - higher suspicion for chest pain secondary to GI causes- uncontrolled GERD vs. PUD; with new anemia and hx of brown vomit, concern for bleeding gastric disease - CTAP ordered for further evaluation; will hemoccult all stools; trend CBC - pantoprazole given on admission; will continue with IV PPI BID - will keep pt NPO for now given concern for bleed Anemia - Hgb 10.5 on admission - unclear etiology; although, suspicious for GI bleed- plan as above Hypokalemia - 3.2 on admission - s/p 40 meq in ER - repeat with AM labs DM - last A1c 03/2024 6.5% - no home medications HTN - continue home metoprolol 12.5mg qAM, 25mg qPM Diet: NPO, IVF at 80 mL/hr VTE ppx: hold in setting of suspected GI bleed Code: full; if pt unable to make her own decisions, her daughter Filomena is her decision maker Dispo: admit to PCU/tele (2) Type II diabetes mellitus with complication: (3) Hypertension: (4) Hypercholesterolemia: (5) GERD without esophagitis: (6) Anemia: History of Present Illness Chief Complaint: chest pain Primary Care Provider: Farhat Lynch DO Pt is a 83 yo female with PMH of thoracic aortic stenosis, HTN, HLD, DM, urinary incontinence, and osteoarthritis presenting to the ER d/t chest pain. Pt notes she has had central chest pain that began over the past 2 days. Her symptoms are intermittent and without obvious triggers. She has a hx of a leg amputation and therefore is unsure if her symptoms are worsened by exertion as she has a hard time getting around. She also notes that her stomach has been upset with this chest pain causing her to vomit. Her vomit has been brown in color. She denies any other associated symptoms like lightheaded or dizziness. She notes feeling "fuzzy." She also feels increased acid and pain in her throat. The vomiting helps to relieve some of her chest discomfort. Pt notes she has had reflux issues in the past and does take medication for this at home. She had an EGD done many years ago. She denies dark stools or BRBPR. She also denies cardiac hx. In the ER, pt was given 40 meq K. Allergies Allergy/AdvReac Type Severity Reaction Status Date / Time Penicillins Allergy Unknown Hives, Verified 06/29/24 08:28 throat swelling pollen extracts Allergy Unknown Seasonal Verified 06/29/24 08:28 allergies dobutamine Allergy Unknown Verified 06/29/24 08:28 sulfamethoxazole Allergy Hives Verified 06/29/24 08:28 [From Bactrim] trimethoprim [From Bactrim] Allergy Hives Verified 06/29/24 08:28 codeine AdvReac Mild N/V Verified 06/29/24 08:28 Home Medications Medication Instructions Recorded Confirmed Type aspirin 81 mg tablet,delayed 81 mg PO QAM 05/15/19 09/03/24 History release calcium carbonate 600 mg PO QAM 05/15/19 09/03/24 History cholecalciferol (vitamin D3) 25 3,000 units PO QAM 05/15/19 09/03/24 History mcg (1,000 unit) capsule cyanocobalamin (vitamin B-12) 1,000 mcg PO QPM #90 caps 05/15/19 09/03/24 History 1,000 mcg capsule gabapentin 300 mg capsule 300 mg PO QAM PRN pain 04/14/22 09/03/24 History magnesium oxide 250 mg PO BID 07/31/22 09/03/24 History blood sugar diagnostic (EasyMax #50 ea 08/31/22 08/31/24 Rx strips) lancets (Accu-Chek Softclix #100 ea 08/31/22 08/31/24 Rx Lancets) esomeprazole magnesium 40 mg 40 mg PO DAILY #90 caps 11/05/23 09/03/24 Rx capsule,delayed release metoprolol tartrate 25 mg tablet 12.5 mg (1/2 x 25 mg) PO QAM 90 11/18/23 09/03/24 Rx days #45 tabs metoprolol tartrate 25 mg tablet 25 mg PO QPM 12/07/23 09/03/24 History lovastatin 20 mg tablet 20 mg PO QAM #90 tabs 02/29/24 09/03/24 Rx fesoterodine 4 mg tablet,extended 4 mg PO DAILY 06/29/24 09/03/24 History release 24 hr ferrous sulfate 325 mg (65 mg 325 mg PO DAILY 09/03/24 09/03/24 History iron) tablet Past Med/Surg History Problem List (Updated 09/02/24 @ 21:29 by Charmaine Elkins DO) Anemia Chest pain Mild cognitive impairment Hypertension (Acute) Mild coronary artery disease (Chronic) Non-obstructive CAD (2010) Carotid artery stenosis (Chronic) Aortoiliac stenosis Followed by [facility] Vascular, b/l iliac artery stent 05/2022 Stenosis of thoracic aorta Type II diabetes mellitus with complication (Chronic) Hypercholesterolemia (Acute) Urge and stress incontinence (Chronic) Osteoporosis (Acute) Irritable bowel syndrome (Acute) GERD without esophagitis (Chronic) Phantom limb syndrome Gait instability Medical History (Updated 09/02/24 @ 21:29 by Charmaine Elkins DO) Primary osteoarthritis of right knee Volume overload Postoperative anemia Presence of cerebrospinal fluid drainage device Large hiatal hernia Per 03/10/22 Chest CTA 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 Hypomagnesemia Suspected to be 2/2 PPI - Started on Mg Oxide 250mg/day Recurrent UTI (urinary tract infection) Mixed conductive and sensorineural hearing loss of both ears Finger deformity Left middle finger Surgical History History of tubal ligation History of tonsillectomy History of hemorrhoidectomy History of hand surgery History of D&C History of colonoscopy History of cataract surgery R/L S/P cholecystectomy S/P knee replacement Right S/P AKA (above knee amputation) Left leg - R/t traumatic injury age 23 Family History Father Emphysema of lung Acute myocardial infarction Hiatal hernia Rheumatoid arthritis Cardiac disorder Myocardial infarction Lung cancer Mother Hypertension Malignant neoplasm of uterus Cardiac disorder Ovarian cancer Unknown Osteoarthritis Diabetes Grandmother Diabetes Aunt Diabetes Uncle Diabetes Grandmother Malignant neoplasm of stomach Denies family history of Prostate cancer Breast cancer Colorectal cancer Stroke Social History Smoking Status: Never smoker Second Hand Exposure: No; Do You Dip or Chew Tobacco: No; Hx Alcohol Use: No Hx Substance Use: No Preferred Language: Stateless Communication Ability: Effective Visual Impairment: Limited Hearing Ability: Use of Hearing Aid Associate Partner Required: No Beliefs That Will Affect Care: None marital status: / Current Living Situation: Alone Current Living Situation Comment: Family to help post op current occupational status: disabled How many Children do You have: 2 Feels Safe at Home: Yes Childhood Exposure to Second-Hand Smoke: No Diet: regular caffeine: No during the past year weight has: remained stable Dental Care, Regularly: Yes Physical Activity Frequency: Does not Exercise Seatbelt Use: always Sunscreen Use: No Assistive Devices: Crutches, Hearing Aid - Right and Wheelchair Review of Systems Review of Systems: As per HPI Physical Exam Constitutional: NAD, vitals WNL. Eyes: Conjunctivae normal. Respiratory: CTA bilaterally. Non labored breathing. No rhonchi, wheezing, or crackles. Cardiovascular: RRR. No murmurs noted. No LE edema of right leg. Gastrointestinal (Abdomen): Nontender, +BS. No masses noted. Musculoskeletal: Left leg surgically absent. Skin: No rashes or skin lesions noted. Neurologic: Sensation grossly intact. No FND appreciated. Psychiatric: Speech of normal pace and content. Mood and affect congruent. Results & Data Results & Data Vital Signs (Past 12 Hours) Vital Signs Temp Pulse Pulse Resp BP BP Pulse Ox 09/02/24 20:30 86 14 158/67 H 09/02/24 19:00 99 H 16 135/84 96 09/02/24 18:43 98 H 09/02/24 18:41 95 H 16 95 09/02/24 18:41 98 H 16 150/78 H 95 09/02/24 18:41 95 09/02/24 18:41 36.9 C 98 H 18 150/78 H 95 O2 Del Method 09/02/24 20:30 09/02/24 19:00 Room Air 09/02/24 18:43 11/02/24 18:41 Room Air 09/02/24 18:41 Room Air 09/02/24 18:41 Room Air 09/02/24 18:41 Room Air Supervising Physician Co-Signing Physician Notes Attending addendum: I have physically seen this patient, have supervised the medical residents activities, and agree with the H&P unless as otherwise noted. Assessment and Plan: Chest pain/hypertension/mild CAD- The patient will be admitted to telemetry for serial cardiac enzymes, serial EKG's, cardiac rhythm monitoring and a 2-D echocardiogram with Dopplers. Initial troponin 4.3 follow-up pending Continue aspirin 81 mg daily, mag oxide twice daily, metoprolol to tartrate 12.5 mg p.o. in the a.m. and 25 mg by mouth in the p.m. Anemia/GERD versus PUD- Hemoccult stools Hemoglobin 0.5 on admission Pantoprazole 40 mg IV, with twice daily dosing Will determine in a.m. for aggressive evaluation as needed Hypokalemia- Potassium 3.2 on admission Given Klor-Con 40 mill equivalents p.o. recheck laboratories in the a.m. Diabetes mellitus- Glucose 148 on admission Check hemoglobin A1c, with most recent on 03/24 6.5 Not on home medications Is elevated in the morning, will place on Accu-Cheks with NovoLog coverage Resident Activity Tracking Resident Involvement: Resident Care Provided Care Provided: Adult Hospital Medicine
[2024-09-02] MEDS ORDERED: ONDANSETRON INJ 2 MG/ML 2 ML VIAL IV PRN (22:23)
[2024-09-02] MEDS ORDERED: MELATONIN 3 MG TAB PO PRN (22:23)
[2024-09-02] MEDS ORDERED: POLYETHYLENE (MIRALAX) 17 GM PACK PO PRN (22:23)
[2024-09-02] MEDS ORDERED: ACETAMINOPHEN 325 MG TAB PO PRN (22:23)
[2024-09-02] MEDS: PANTOprazole 40 MG/10 ML SYR IV ONE (22:40)
[2024-09-02] MEDS ORDERED: GABAPENTIN 300 MG CAP PO PRN (23:44)
[2024-09-02] MEDS: LACTATED RINGER'S 1,000 ML IV SCH (23:51)
--- NOTE | 2024-09-03 01:51 | XRay Report ---
Exam(s): XR CXR 1 VIEW EXAM: XR Chest, 1 View CLINICAL HISTORY: Reason for exam: Chest pain, nonspecific. TECHNIQUE: Frontal view of the chest. COMPARISON: August 16, 2023 FINDINGS: Lungs: Unremarkable. No consolidation. Pleural space: Unremarkable. No pneumothorax. Heart: Unremarkable. No cardiomegaly. Mediastinum: Unremarkable. Normal mediastinal contour. Bones/joints: Unremarkable. No acute fracture. IMPRESSION: Normal chest x-ray. Electronically signed by: Steven Ramirez MD 09/03/24 01:50 AM
--- NOTE | 2024-09-03 03:09 | CT Scan Report ---
Exam(s): CT ABDOMEN + PELVIS Without Contrast EXAM: CT Abdomen and Pelvis Without Intravenous Contrast CLINICAL HISTORY: Reason for exam: vomiting, concern for GI bleed. TECHNIQUE: Axial computed tomography images of the abdomen and pelvis without intravenous contrast. CTDI is 26.39 mGy and DLP is 1209.6 mGy-cm. Automated exposure control was utilized for the study. A dose lowering technique was utilized adhering to the principles of ALARA. COMPARISON: August 14, 2022 FINDINGS: Lung bases: Unremarkable. No mass. No consolidation. Mediastinum: Large esophageal hiatal hernia. ABDOMEN: Liver: Unremarkable. Gallbladder and bile ducts: Postoperative changes prior cholecystectomy. No ductal dilation. Pancreas: Unremarkable. No ductal dilation. Spleen: Unremarkable. No splenomegaly. Adrenals: Unremarkable. No mass. Kidneys and ureters: Unremarkable. No obstructing stones. No hydronephrosis. Stomach and bowel: Diverticulosis without evidence of diverticulitis. No obstruction. PELVIS: Appendix: No findings to suggest acute appendicitis. Bladder: Unremarkable. No stones. Reproductive: Unremarkable as visualized. ABDOMEN and PELVIS: Intraperitoneal space: Unremarkable. No free air. No significant fluid collection. Bones/joints: See below. Soft tissues: Unremarkable. Vasculature: dense calcification of the abdominal aorta with postoperative changes kissing iliac stents. No abdominal aortic aneurysm. Lymph nodes: Unremarkable. No enlarged lymph nodes. IMPRESSION: Large esophageal hiatal hernia. The presence or absence of a gastrointestinal hemorrhage cannot be assessed on this unenhanced CT scan. . Electronically signed by: Steven Ramirez MD 09/03/24 03:08 AM
[2024-09-03 05:15] LABS: Hematocrit (blood only) 27.6 % (37.0-47.0); Hemoglobin 8.8 g/dl (12.0-16.0); Mean Corpuscular Hemoglobin 27.1 pg (25.0-34.0); Mean Corpuscular Hgb Conc 31.9 g/dL (32.0-36.0); Mean Corpuscular Volume 84.9 fL (80.0-100.0); Mean Platelet Volume 11.6 fL (9.4-12.4); Platelet Count 206 K/uL (130-400); RDW Coefficient of Variation 13.8 % (11.5-14.5); RDW Standard Deviation 43.1 fL (36.4-46.3); Red Blood Count 3.25 M/uL (4.20-5.40); White Blood Count 5.96 K/ul (4.8-10.8)
[2024-09-03 05:29] LABS: BUN Creatinine Ratio 36.6 (10-20); Calcium 8.4 mg/dl (8.6-10.3); Creatinine Clr Calc Pharmacy 47.9 ml/min
[2024-09-03 07:31] VITALS: RESP 21; TEMP 97.9; O2SAT 94
[2024-09-03] MEDS: PANTOprazole 40 MG/10 ML SYR IV SCH (08:27)
[2024-09-03] MEDS: OXYBUTYNIN CHLORIDE XL 5 MG TABCR PO SCH (08:27)
[2024-09-03] MEDS: METOPROLOL TARTRATE 25 MG TAB PO SCH (08:27)
--- NOTE | 2024-09-03 09:38 | Discharge Summary ---
Discharge Summary Date of Service September 03, 2024 Principal Dx & Hospital Course #1 = Principal Diagnosis (1) Chest pain: Atypical. Troponin series negative. EKGs revealed no acute changes. Cardiac echo report is pending. She is currently asymptomatic (2) Anemia: Chronic. No overt melena or hematochezia. Further outpatient evaluation might be warranted (3) Mild cognitive impairment: Supportive care. (4) Type II diabetes mellitus with complication: ADA diet. Sliding scale coverage as needed. Continue current medical management (5) Hypercholesterolemia: Stable. Continue current medical management Plan Home today, September 03. See PCP as soon as possible for consideration for outpatient stress testing Admission HPI Per Admitting Provider Pt is a 83 yo female with PMH of thoracic aortic stenosis, HTN, HLD, DM, urinary incontinence, and osteoarthritis presenting to the ER d/t chest pain. Pt notes she has had central chest pain that began over the past 2 days. Her symptoms are intermittent and without obvious triggers. She has a hx of a leg amputation and therefore is unsure if her symptoms are worsened by exertion as she has a hard time getting around. She also notes that her stomach has been upset with this chest pain causing her to vomit. Her vomit has been brown in color. She denies any other associated symptoms like lightheaded or dizziness. She notes feeling "fuzzy." She also feels increased acid and pain in her throat. The vomiting helps to relieve some of her chest discomfort. Pt notes she has had reflux issues in the past and does take medication for this at home. She had an EGD done many years ago. She denies dark stools or BRBPR. She also denies cardiac hx. In the ER, pt was given 40 meq K. Discharge Exam General-alert and oriented x3, no fever, no chills HEENT-head atraumatic and normocephalic, pupils equal and reactive to light, extraocular muscles intact Neck-no lymphadenopathy or thyromegaly, trachea midline Chest-clear to auscultation. No rales, wheezing or rhonchi Cardiac-regular rate and rhythm, normal S1 and S2 Abdomen-normal bowel sounds, no hepatosplenomegaly Extremities-no cyanosis, clubbing, or edema Neuro-cranial nerves II through XII intact, motor and sensory function within normal limits, strength symmetrical, no focal deficits Psych-normal affect, normal mood Discharge Plan Discharge Items Patient Disposition: Home - Self-Care Reason For Visit: CHEST PAIN Discharge Diagnosis: Atypical chest pain Activity: Resume your previous activity Non-emergency contact: Primary Care Provider Call non-emergency contact if: your symptoms worsen Follow-up/Referrals: Farhat Lynch, [Primary Care Provider] - Diet: Carb Consistent or DM2 and Heart Healthy Addtl Attending Provider Instructions: All medications remain the same. See primary care provider as soon as possible for consideration of outpatient stress testing Pending Studies at Discharge: Yes Studies:: Cardiac echo report Stand-Alone Forms: My [facility] [employer], Smoking Cessation Medications and DC Order Prescriptions: Continued magnesium oxide 250 mg magnesium tablet 250 mg PO BID (DME) EasyMax Strip See Rx Instructions .Route Qty: 50 1RF Rx Instructions: daily as directed (DME) lancets [Accu-Chek Softclix Lancets] Misc See Rx Instructions .Route Qty: 100 0RF Rx Instructions: As directed daily esomeprazole magnesium 40 mg capsule,delayed release(DR/EC) 40 mg PO DAILY Qty: 90 3RF metoprolol tartrate 25 mg tablet 12.5 mg PO QAM 90 Days Qty: 45 3RF lovastatin 20 mg tablet 20 mg PO QAM Qty: 90 3RF aspirin 81 mg tablet,delayed release (DR/EC) 81 mg PO QAM cyanocobalamin (vitamin B-12) 1,000 mcg capsule 1,000 mcg PO QPM Qty: 90 calcium carbonate 600 mg calcium (1,500 mg) tablet 600 mg PO QAM cholecalciferol (vitamin D3) 1,000 unit capsule 3,000 units PO QAM metoprolol tartrate 25 mg tablet 25 mg PO QPM Rx Instructions: takes 1/2 tab in the morning and 1 tab in the evening fesoterodine 4 mg tablet extended release 24 hr 4 mg PO DAILY gabapentin 300 mg capsule 300 mg PO QAM PRN (Reason: pain) Discharge Orders: Discharge Order (Routine); Ordered 09/03/24 Ordered By: Maximino Ugarte Admission Data Admit Date/Time: 09/02/24 22:23 Attending Provider: Maximino Ugarte Admit Provider: Charmaine Elkins Primary Care Provider: Farhat Lynch Other Providers: Miguel Garcia Hospital Stay Data Consultations 09/02/24 21:12 ED Decision to Admit Stat Diagnostic Imagining Performed 09/02/24 22:33 CT Abd and Pelvis [CT abd pelvis wo con] Stat Pending Results Patient Have Any Pending Studies at Discharge: Yes Discharge Instructions Given to Patient (Per Discharging Provider) All medications remain the same. See primary care provider as soon as possible for consideration of outpatient stress testing Total Time Total Time Spent Total Time Spent (In Minutes): 45-minute Coding Level of Care Code 65016 INP/OBS DISCH >30 MIN Diagnoses Chest pain R07.9 Anemia D64.9 Mild cognitive impairment G31.84 Type II diabetes mellitus with complication E11.8 Hypercholesterolemia E78.00
[2024-09-03 10:03] VITALS: BP 131/75; PULSE 84
--- NOTE | 2024-09-03 17:31 | Electrocardiogram Report ---
Test Reason : Blood Pressure : */* mmHG Vent. Rate : 99 BPM Atrial Rate : 99 BPM P-R Int : 142 ms QRS Dur : 74 ms QT Int : 358 ms P-R-T Axes : 69 33 79 degrees QTcB Int : 459 ms Normal sinus rhythm Nonspecific ST and T wave abnormality Abnormal ECG When compared with ECG of 01-Aug-2022 09:26, Non-specific change in ST segment in Lateral leads Confirmed by Kristen Lozano (Rita) on 09/03/2024 5:30:44 PM Referred By: Confirmed By: Kristen Lozano
[2024-09-03] MEDS ORDERED: METOPROLOL TARTRATE 25 MG TAB PO SCH (21:00)
--- NOTE | 2024-09-03 23:56 | Billing Data ---
Date of Service September 03, 2024 Coding Level of Care Code 57381 INT INP/OBS CARE
--- NOTE | 2024-09-04 09:07 | Electrocardiogram Report ---
Test Reason : Blood Pressure : */* mmHG Vent. Rate : 83 BPM Atrial Rate : 83 BPM P-R Int : 144 ms QRS Dur : 72 ms QT Int : 396 ms P-R-T Axes : 57 21 36 degrees QTcB Int : 465 ms Normal sinus rhythm Normal ECG When compared with ECG of 02-Sep-2024 18:41, Non-specific change in ST segment in Lateral leads Nonspecific T wave abnormality no longer evident in Lateral leads Confirmed by Kristen Lozano (Rita) on 09/04/2024 9:06:51 AM Referred By: REFERRED SELF Confirmed By: Kristen Lozano
== END 2024-09-03 11:17 | disposition home or self-care (01) | DRG 313 ==
LOC: ED 18:34 → INTOOBSV 22:23 → SUATTDRO 22:23 → 4W 22:23